=== PATIENT | female | born 1980 | race African-American/Black ===

== ENCOUNTER 2018-04-24 17:42 | Inpatient (IN) | payer OTHER ==
[2018-04-24] MEDS ORDERED: NORMAL SALINE 1000 ML 1,000 ML IV ONE (18:12)
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
[2018-04-24] MEDS ORDERED: ONDANSETRON 4 MG TAB.RAPDIS PO ONE (18:21)
[2018-04-24 19:17] LABS: HEMATOCRIT 36.8 % (36.0-47.0); HEMOGLOBIN 11.8 g/dL (12.0-15.5); MEAN CORPUSCULAR HEMOGLOBIN 31.2 pg (27.0-33.4); MEAN CORPUSCULAR HGB CONC 32.2 g/dL (32.0-36.0); MEAN CORPUSCULAR VOLUME 97 fl (80-97); PLATELET COUNT 353 10^3/uL (150-450); RED CELL DISTRIBUTION WIDTH 26.9 % (11.5-14.0); WHITE BLOOD COUNT 7.9 10^3/uL (4.0-10.5)
--- NOTE | 2018-04-24 19:20 | RADIOLOGY REPORT (SQ) ---
EXAM DESCRIPTION: CHEST SINGLE VIEW COMPLETED DATE/TIME: 04/24/2018 7:06 pm REASON FOR STUDY: sob COMPARISON: None. EXAM PARAMETERS: NUMBER OF VIEWS: One view. TECHNIQUE: Single frontal radiographic view of the chest acquired. RADIATION DOSE: NA LIMITATIONS: None. FINDINGS: LUNGS AND PLEURA: No opacities, masses or pneumothorax. No pleural effusion. MEDIASTINUM AND HILAR STRUCTURES: No masses. Contour normal. HEART AND VASCULAR STRUCTURES: Heart normal in size. Normal vasculature. BONES: No acute findings. HARDWARE: None in the chest. OTHER: No other significant finding. IMPRESSION: NO ACUTE RADIOGRAPHIC FINDING IN THE CHEST. TECHNICAL DOCUMENTATION: JOB ID: [id number] [id number] 2010 [employer]- All Rights Reserved Reading location - IP/workstation name: [email or web address]
[2018-04-24 19:32] LABS: ALANINE AMINOTRANSFERASE 72 U/L (9-52); ALBUMIN 5.4 g/dL (3.5-5.0); ALKALINE PHOSPHATASE 82 U/L (38-126); ASPARTATE AMINO TRANSFERASE 172 U/L (14-36); BILIRUBIN,DIRECT 0.7 mg/dL (0.0-0.4); BLOOD UREA NITROGEN 7 mg/dL (7-20); CALCIUM 10.4 mg/dL (8.4-10.2); GLUCOSE 121 mg/dL (75-110); POTASSIUM 4.8 mmol/L (3.6-5.0); TOTAL PROTEIN 10.8 g/dL (6.3-8.2)
[2018-04-24 19:40] LABS: ABSOLUTE MONOCYTES # (MANUAL) 0.1 10^3/uL (0.1-1.4); ABSOLUTE NEUTROPHILS# (MANUAL) 5.8 10^3/uL (1.7-8.2); BASOPHILS % (MANUAL) 0 % (0-2); CHLORIDE 107 mmol/L (98-107); EOSINOPHILS % (MANUAL) 0 % (0-6); LYMPHOCYTES % (MANUAL) 25 % (13-45); MONOCYTES % (MANUAL) 1 % (3-13); SEGMENTED NEUTROPHILS % (MAN) 74 % (42-78); SODIUM 141.3 mmol/L (137-145); TOTAL CELLS COUNTED 100
[2018-04-24 19:41] LABS: ANISOCYTOSIS 3+; PLATELET COMMENT ADEQUATE; POLYCHROMASIA 1+
[2018-04-24 19:47] LABS: FREE T3 1.66 pg/mL (2.77-5.27); FREE T4 (FREE THYROXINE) 0.44 ng/dL (0.78-2.19)
[2018-04-24 19:57] LABS: CARBON DIOXIDE < 5 mmol/L (22-30)
[2018-04-24 20:01] LABS: THYROID STIMULATING HORMONE 3.1 uIU/mL (0.47-4.68)
[2018-04-24] MEDS ORDERED: METOCLOPRAMIDE HCL INJ/PF 10 MG/2 ML SDV IV ONE (20:28)
[2018-04-24] MEDS ORDERED: RINGERS SOLUTION,LACTATED 1,000 ML IV ONE (20:28)
[2018-04-24] MEDS ORDERED: DIAZEPAM INJ 10 MG/2 ML DISP.SYRIN ONE (20:44)
[2018-04-24] MEDS ORDERED: DIAZEPAM INJ 10 MG/2 ML DISP.SYRIN IV ONE ×2 (20:53→22:46)
--- NOTE | 2018-04-24 21:07 | EKG REPORT ---
SEVERITY:- BORDERLINE ECG - SINUS RHYTHM PROBABLE LEFT ATRIAL ABNORMALITY : Confirmed by: Fiorella Posey MD 24-Apr-2018 21:06:32
[2018-04-24] MEDS ORDERED: HALOPERIDOL LACTATE INJ 5 MG/1 ML VIAL IV ONE (21:29)
--- NOTE | 2018-04-24 21:31 | ER Document Report ---
ED General - General Chief Complaint: Breathing Difficulty Stated Complaint: VOMITING/WEAKNESS Time Seen by Provider: 04/24/18 18:10 Mode of Arrival: Ambulatory Cannot obtain history due to: Uncooperative Notes: Patient is a 37-year-old female with a past medical history of alcoholism, PTSD , anxiety who presents with feelings of shortness of breath, nausea and anxiety. The patient states that her symptoms started this morning, been ongoing since that time. She denies any alcohol consumption today. She states that she took hydroxyzine thinking she was having anxiety attack which did not help. She denies any history of similar symptoms in the past. She notes that she has had nausea with associated vomiting but denies chest pain or abdominal pain. No fever or constitutional symptoms. She has not seen her general doctor regarding today's concerns. She denies any medication ingestion today other than hydroxyzine. She denies any illicit substance ingestion. She denies toxic alcohol ingestion. TRAVEL OUTSIDE OF THE [place] IN LAST 30 DAYS: No - Related Data Allergies/Adverse Reactions: Penicillins Allergy (Verified 04/24/18 17:43) Shellfish * [Shellfish] Allergy (Verified 04/24/18 17:43) Past Medical History - General Information source: Patient - Social History Smoking Status: Current Some Day Smoker Chew tobacco use (# tins/day): No Frequency of alcohol use: ETOH abuse Drug Abuse: None Lives with: Family Family History: Arthritis, CAD, DM, Malignancy Patient has suicidal ideation: No Patient has homicidal ideation: No - Past Medical History Cardiac Medical History: Reports: Hx Hypercholesterolemia - DX IN 2011, Hx Hypertension - no meds Pulmonary Medical History: Reports: Hx Bronchitis - IN 2007 Renal/ Medical History: Denies: Hx Peritoneal Dialysis Psychiatric Medical History: Reports: Hx Anxiety - DX IN 2010, Hx Depression - DX IN 2010, Hx Post Traumatic Stress Disorder - DX IN 2009 Past Surgical History: Reports: Hx Tonsillectomy - REMOVE 2006 - Immunizations Immunizations up to date: Yes Hx Diphtheria, Pertussis, Tetanus Vaccination: Yes Review of Systems - Review of Systems Notes: Constitutional: Negative for fever. HENT: Negative for sore throat. Eyes: Negative for visual changes. Cardiovascular: Negative for chest pain. Respiratory: Positive for shortness of breath. Gastrointestinal: Negative for abdominal pain, positive for nausea and vomiting Genitourinary: Negative for dysuria. Musculoskeletal: Negative for back pain. Skin: Negative for rash. Neurological: Negative for headaches, weakness or numbness. 10 point ROS negative except as marked above and in HPI. Physical Exam - Vital signs Vitals: Temp Pulse Resp BP Pulse Ox 97.5 F 135 H 24 H 138/104 H 97 04/24/18 17:48 04/24/18 17:48 04/24/18 17:48 04/24/18 17:48 04/24/18 17:48 Interpretation: Tachycardic, Tachypneic Notes: PHYSICAL EXAMINATION: GENERAL: Appears unwell but in no overt distress. Hyperventilating. HEAD: Atraumatic, normocephalic. EYES: Pupils equal round and reactive to light, extraocular movements intact, sclera anicteric, conjunctiva are normal. ENT: nares patent, oropharynx clear without exudates. Dry mucous membranes. NECK: Normal range of motion, supple without lymphadenopathy LUNGS: Hyperventilation, breathing 50 times per minute at the time of my initial assessment. Clear breath sounds in all lung chong. No retractions or evidence of overt distress. HEART: Regular tachycardia without murmurs ABDOMEN: Soft, nontender, normoactive bowel sounds. No guarding, no rebound. No masses appreciated. EXTREMITIES: Normal range of motion, no pitting or edema. No cyanosis. NEUROLOGICAL: No focal neurological deficits. Moves all extremities spontaneously and on command. PSYCH: Highly anxious SKIN: Warm, Dry, normal turgor, no rashes or lesions noted. Course - Re-evaluation Re-evalutation: 04/24/18 21:29 Patient presents with what appears to be severe anxiety with associated hyperventilation. She is quite tachycardic although is saturating 100% on room air, chest evidence of a pneumothorax or infiltrate. Her labs show an undetectable bicarb. Venous blood gas and lactate are pending. Patient does admit to severe anxiety, diazepam was administered without any significant effect. This is extremely concerning as this would be quite atypical for a panic attack as would her low bicarbonate. Will obtain a CTA of the chest to ensure that her profound tachypnea is not related to an acute pulmonary embolus which I believe is unlikely. Metabolic origins are also in the differential the patient adamantly denies any toxic alcohol ingestion, she is not uremic, no evidence of DKA. 04/24/18 21:44 Patient's tachypnea and heart rate have gradually improved after receiving haloperidol though she does remain moderately tachypneic. We are working to obtain venous blood gas and the patient will go for CTA of the chest. Given her persistent tachypnea and overall ongoing clinical picture the patient is in guarded condition and I will continue to reassess at regular intervals 04/24/18 22:24 Patient's work of breathing and tachycardia gradually improving although she does continue to be somewhat tachypneic. Heart rate currently 113. Blood gas and CTA pending. 04/24/18 22:30 CTA of the chest was unable to be obtained as the line blew. The patient's lactate is normal at 1. Venous blood gas does significant metabolic abnormalities pH of 7.02 with a PCO2 of 19. This is consistent with hyperventilatory respiratory alkalosis although it appears that the patient is having a metabolic acidosis of an unclear source. The patient is not DKA, no evidence of a lactic acidosis, she denies toxic alcohol ingestion, EtOH level negative, salicylate level pending. 04/24/18 22:55 The patient continues to hyperventilate, I have again confronted her directly about any possibility of aspirin, Tylenol or toxic alcohol ingestion which she again denies forcefully stating the only thing she took today at home was hydroxyzine. I do not believe a CT is indicated at this point as the overall picture on blood gas is of a metabolic acidosis with a tachypnea as a form of respiratory compensation. Serum osmole's are pending. Patient does not require intubation and I think this would dramatically worsen her picture at this time. A bicarbonate bolus followed by infusion have been started. 04/25/18 00:03 Patient's vitals have continued to improve, current heart rate down to 104, respiratory rate into the upper 20s. Awaiting serum Patel's. Bicarb infusion ongoing. Awaiting repeat Accu-Chek. Thiamine and folate have been initiated. Awaiting urinalysis. 04/25/18 00:42 I discussed this case with Dr. Rodriguez who has accepted the patient for admission. At this point the most probable diagnosis appears to be alcoholic ketosis - Vital Signs Vital signs: Temp Pulse Resp BP Pulse Ox 97.5 F 135 H 31 H 138/104 H 100 04/24/18 17:48 04/24/18 17:48 04/25/18 02:00 04/24/18 17:48 04/25/18 01:00 - Laboratory Result Diagrams: 04/24/18 19:00 04/24/18 19:00 Laboratory results interpreted by me: 04/24/18 04/24/18 04/24/18 19:00 19:00 19:00 Hgb 11.8 L RDW 26.9 H Monocytes % (Manual) 1 L VBG pH VBG pCO2 VBG HCO3 Carbon Dioxide < 5 L* Creatinine 1.64 H Est GFR ( Amer) 43 L Est GFR (Non-Af Amer) 36 L Glucose 121 H Serum Osmolality Calcium 10.4 H Phosphorus Direct Bilirubin 0.7 H AST 172 H ALT 72 H Total Protein 10.8 H Albumin 5.4 H Free T4 0.44 L Free T3 pg/mL 1.66 L Salicylates Acetaminophen 04/24/18 04/24/18 04/24/18 19:00 19:00 19:00 Hgb RDW Monocytes % (Manual) VBG pH VBG pCO2 VBG HCO3 Carbon Dioxide Creatinine Est GFR ( Amer) Est GFR (Non-Af Amer) Glucose Serum Osmolality 319 H Calcium Phosphorus Direct Bilirubin AST ALT Total Protein Albumin Free T4 Free T3 pg/mL Salicylates < 1.0 L Acetaminophen < 10 L 04/24/18 04/24/18 19:00 22:09 Hgb RDW Monocytes % (Manual) VBG pH 7.02 L* VBG pCO2 19.0 L* VBG HCO3 4.8 L Carbon Dioxide Creatinine Est GFR ( Amer) Est GFR (Non-Af Amer) Glucose Serum Osmolality Calcium Phosphorus 5.2 H Direct Bilirubin AST ALT Total Protein Albumin Free T4 Free T3 pg/mL Salicylates Acetaminophen - Diagnostic Test Radiology reviewed: Image reviewed, Reports reviewed Radiology results interpreted by me: 04/25/18 00:42 Chest x-ray: No acute infiltrate or pneumothorax Critical Care Note - Critical Care Note Total time excluding time spent on procedures (mins): 78 Comments: Critical care time spent obtaining history from patient or surrogate, discussions with consultants, development of treatment plan with patient or surrogate, evaluation of patient's response to treatment, examination of patient , ordering and performing treatments and interventions, ordering and review of laboratory studies, re-evaluation of patient's condition, ordering and review of radiographic studies and review of old charts Discharge - Discharge Clinical Impression: Alcoholic ketosis, Metabolic acidosis, Respiratory alkalosis Condition: Fair Disposition: ADMITTED INPATIENT Admitting Provider: Hospitalist Unit Admitted: Telemetry
[2018-04-24 22:34] LABS: VENOUS BLOOD BASE EXCESS -24.4 mmol/L; VENOUS BLOOD HCO3 4.8 mmol/L (20-32)
[2018-04-24 22:38] LABS: VENOUS BLOOD PH 7.02 (7.30-7.42)
[2018-04-24] MEDS ORDERED: SODIUM BICARBONATE 8.4% INJ 50 MEQ/50 ML DISP.SYRIN IV ONE (22:48)
[2018-04-24] MEDS ORDERED: DEXTROSE 5%-WATER 1000 ML 1,000 ML with SODIUM BICARBONATE 150 MEQ IV PRN ×2 (22:55)
[2018-04-24 23:13] LABS: SALICYLATE < 1.0 mg/dL (2.0-20.0)
[2018-04-24] MEDS ORDERED: THIAMINE HCL 100 MG, FOLIC ACID 1 MG in NORMAL SALINE 250 ML IV ONE (23:27)
[2018-04-24] MEDS ORDERED: SODIUM BICARBONATE 8.4% INJ 50 MEQ/50 ML DISP.SYRIN ONE (23:38)
[2018-04-24 23:57] LABS: ACETAMINOPHEN < 10 ug/mL (10-30)
[2018-04-25] MEDS ORDERED: DEXTROSE 50%-WATER 25 GM/50 ML DISP.SYRIN IV ONE (00:39)
[2018-04-25] MEDS ORDERED: IPRATROPIUM/ALBUTEROL 0.5-2.5 MG/3 ML AMPUL NEB PRN (00:49)
[2018-04-25] MEDS ORDERED: DEXTROSE 5%-1/2 NORMAL SALINE 1,000 ML IV PRN (01:00)
[2018-04-25 01:07] LABS: INTERNATIONAL RATION (INR) 1.03
[2018-04-25 01:14] LABS: LIPASE 287.4 U/L (23-300); PHOSPHORUS 5.2 mg/dL (2.5-4.5)
[2018-04-25] MEDS ORDERED: THIAMINE HCL INJ 200 MG/2 ML VIAL ONE (01:15)
[2018-04-25] MEDS ORDERED: FOLIC ACID INJ 5 MG/1 ML 10 ML VIAL ONE (01:39)
[2018-04-25] MEDS: LORAZEPAM INJ 2 MG/1 ML VIAL IV PRN ×2 (03:38→21:27)
--- NOTE | 2018-04-25 04:46 | OPERATIVE REPORT E ---
Operative Report NAME: MAURA PEMBERTON : 1980 AGE: 37Y DATE OF SURGERY: 04/25/18 ROOM: 315 PREOPERATIVE DIAGNOSIS: POOR VEINS FOR IV ACCESS AND PATIENT NEEDED ACCESS BECAUSE OF HER ALCOHOLIC INTOXICATION. POSTOPERATIVE DIAGNOSIS: POOR VEINS FOR IV ACCESS AND PATIENT NEEDED ACCESS BECAUSE OF HER ALCOHOLIC INTOXICATION. OPERATION: Placement of left subclavian vein triple-lumen catheter. SURGEON: YAMILEX WAITE M.D. ANESTHESIA: Local. INDICATION: This is a 37-year-old female admitted for alcoholic intoxication and has poor veins for IV access. DESCRIPTION OF PROCEDURE: The patient was placed in Trendelenburg position and the left clavicular and neck areas were then prepped and draped in the usual sterile fashion. Local anesthesia infiltrated along the left infraclavicular area and the left subclavian vein subsequently punctured and guidewire passed through the needle towards the area of the superior vena cava. The needle was removed, the puncture site enlarged, and a triple-lumen catheter inserted through the guidewire to a distance of about 16 cm. The catheter was then anchored to the skin with 3-0 silk and all the 3 ports aspirated easily and instilled saline easily. Biopatch placed over the insertion site and a transparent sterile dressing placed over the Biopatch and catheter. A chest x-ray will be taken for placement. DICTATING PHYSICIAN: YAMILEX WAITE M.D. [id number] PHY#: [id number] ID: [id number] JOB#: [id number] ACCT: [id number] cc:YAMILEX WAITE M.D. >
[2018-04-25 04:56] LABS: ARTERIAL BLOOD BASE EXCESS -19.4 mmol/L; ARTERIAL BLOOD H2CO3 0.38 mmol/L (1.05-1.35); ARTERIAL BLOOD HCO3 5.4 mmol/L (20-24); ARTERIAL BLOOD O2 SATURATION 98.4 % (94-98); ARTERIAL BLOOD PH 7.25 (7.35-7.45); ARTERIAL BLOOD PO2 136.4 mmHg (80-100); ARTERIAL BLOOD TOTAL CO2 5.8 mmol/L (21-25)
[2018-04-25 05:03] LABS: ARTERIAL BLOOD PCO2 12.6 mmHg (35-45)
[2018-04-25 05:06] LABS: ARTERIAL BLOOD FIO2 2 L
[2018-04-25 05:13] LABS: ABSOLUTE LYMPHOCYTES (AUTO) 0.5 10^3/uL (0.5-4.7); ABSOLUTE MONOCYTES (AUTO) 0.2 10^3/uL (0.1-1.4); ABSOLUTE NEUT (AUTO) 9.3 10^3/uL (1.7-8.2); BASOPHILS % (AUTO) 0.2 % (0-2); HEMOGLOBIN 10.5 g/dL (12.0-15.5); LYMPHOCYTES % (AUTO) 5.1 % (13-45); MEAN CORPUSCULAR HEMOGLOBIN 30.9 pg (27.0-33.4); MEAN CORPUSCULAR VOLUME 97 fl (80-97); MONOCYTES % (AUTO) 2.2 % (3-13); PLATELET COUNT 238 10^3/uL (150-450); RED BLOOD COUNT 3.42 10^6/uL (3.72-5.28); RED CELL DISTRIBUTION WIDTH 26.4 % (11.5-14.0); SEGMENTED NEUTROPHILS % (AUTO) 92.5 % (42-78); TOTAL CELLS COUNTED % (AUTO) 100 %
[2018-04-25 05:27] LABS: ANISOCYTOSIS 3+; PLATELET COMMENT ADEQUATE; POLYCHROMASIA 1+
[2018-04-25 05:29] LABS: ALANINE AMINOTRANSFERASE 68 U/L (9-52); ALKALINE PHOSPHATASE 72 U/L (38-126); ASPARTATE AMINO TRANSFERASE 114 U/L (14-36); BILIRUBIN,DIRECT 0.6 mg/dL (0.0-0.4); BILIRUBIN,TOTAL 0.9 mg/dL (0.2-1.3); BLOOD UREA NITROGEN 5 mg/dL (7-20); CALCIUM 9.5 mg/dL (8.4-10.2); GLUCOSE 230 mg/dL (75-110); POTASSIUM 5.2 mmol/L (3.6-5.0); TOTAL PROTEIN 9.2 g/dL (6.3-8.2)
[2018-04-25 05:35] LABS: CHLORIDE 109 mmol/L (98-107); SODIUM 141.4 mmol/L (137-145)
[2018-04-25 05:41] LABS: ANION GAP 27 (5-19)
[2018-04-25 05:43] LABS: CARBON DIOXIDE 5 mmol/L (22-30)
[2018-04-25] MEDS: HEPARIN SOD (PORCINE) 5,000 UNIT/ML 1 ML SYRINGE SUBCUT SCH ×3 (05:44→21:27)
--- NOTE | 2018-04-25 05:50 | RADIOLOGY REPORT (SQ) ---
Chest single view on 04/25/2018 at 4:41 AM CLINICAL INDICATION: Central line placement COMPARISON: 04/24/2018 FINDINGS: New left subclavian catheter tip is in the SVC. There is no pneumothorax. The lungs are clear. Cardiac, hilar and mediastinal contours are within normal limits. Pulmonary vascularity is within normal limits. IMPRESSION: No acute disease.
[2018-04-25] MEDS ORDERED: GLUCAGON,HUMAN RECOMB 1 MG INJ IM PRN (05:51)
[2018-04-25] MEDS ORDERED: INSULIN REG, HUMAN 100 UNIT/ML 3 ML VIAL (PYX) IV ONE (05:51)
[2018-04-25] MEDS ORDERED: DEXTROSE 40% GEL 15 GM TUBE PO PRN ×2 (05:51)
[2018-04-25] MEDS ORDERED: INSULIN LISPRO 100 UNIT/ML 3 ML VIAL SUBCUT PRN (05:51)
[2018-04-25] MEDS ORDERED: DEXTROSE 50%-WATER 25 GM/50 ML DISP.SYRIN IV PRN ×2 (05:51)
[2018-04-25] MEDS ORDERED: PHARMACY COMMUNICATION ORDER MC NR (10:30)
[2018-04-25] MEDS ORDERED: PROPOFOL 1,000 MG/100 ML INFUS..BTL IV ONE (10:47)
[2018-04-25 11:15] LABS: ARTERIAL BLOOD H2CO3 0.63 mmol/L (1.05-1.35); ARTERIAL BLOOD HCO3 10.1 mmol/L (20-24); ARTERIAL BLOOD O2 SATURATION 97.7 % (94-98); ARTERIAL BLOOD PO2 109.5 mmHg (80-100); ARTERIAL BLOOD TOTAL CO2 10.7 mmol/L (21-25)
[2018-04-25 11:16] LABS: ARTERIAL BLOOD FIO2 21%
[2018-04-25 11:18] LABS: ARTERIAL BLOOD PCO2 20.9 mmHg (35-45)
[2018-04-25 11:23] LABS: HEMATOCRIT 30.9 % (36.0-47.0); HEMOGLOBIN 10.2 g/dL (12.0-15.5); MEAN CORPUSCULAR HEMOGLOBIN 30.8 pg (27.0-33.4); MEAN CORPUSCULAR VOLUME 94 fl (80-97); PLATELET COUNT 209 10^3/uL (150-450); RED CELL DISTRIBUTION WIDTH 26.7 % (11.5-14.0); WHITE BLOOD COUNT 6.6 10^3/uL (4.0-10.5)
[2018-04-25 11:31] LABS: ANION GAP 19 (5-19); BLOOD UREA NITROGEN 4 mg/dL (7-20); CALCIUM 8.8 mg/dL (8.4-10.2); CARBON DIOXIDE 12 mmol/L (22-30); CHLORIDE 108 mmol/L (98-107); GLUCOSE 275 mg/dL (75-110); POTASSIUM 4.3 mmol/L (3.6-5.0); SODIUM 138.6 mmol/L (137-145)
[2018-04-25 11:41] LABS: URINE AMPHETAMINES SCREEN NEGATIVE; URINE BARBITURATES SCREEN NEGATIVE; URINE COCAINE SCREEN NEGATIVE; URINE MARIJUANA (THC) SCREEN NEGATIVE; URINE METHADONE SCREEN NEGATIVE; URINE PHENCYCLIDINE SCREEN NEGATIVE
[2018-04-25 11:49] LABS: URINE BENZODIAZEPINES SCREEN UNCONFIRMED POSITIVE
[2018-04-25] MEDS: RINGERS SOLUTION,LACTATED 1,000 ML IV PRN ×2 (12:20→21:26)
--- NOTE | 2018-04-25 12:39 | RADIOLOGY REPORT (SQ) ---
EXAM DESCRIPTION: KUB/ABDOMEN (SINGLE VIEW) COMPLETED DATE/TIME: 04/25/2018 11:38 am REASON FOR STUDY: Check Placement of NG Tube COMPARISON: None. NUMBER OF VIEWS: One view. TECHNIQUE: Supine radiographic image of the abdomen acquired. LIMITATIONS: None. FINDINGS: BOWEL GAS PATTERN: Normal bowel gas pattern. No dilated loops. CALCIFICATIONS: No suspicious calcifications. SOFT TISSUES: No gross mass or suggestion of organomegaly. HARDWARE: None. BONES: No bone lesions or fracture. OTHER: Nasogastric tube in the stomach. IMPRESSION: Nasogastric tube in the stomach. Reading location - IP/workstation name: [email or web address]
[2018-04-25] MEDS ORDERED: THIAMINE HCL 100 MG, FOLIC ACID 1 MG in NORMAL SALINE 250 ML IV SCH (14:00)
[2018-04-25] MEDS ORDERED: NORMAL SALINE 1000 ML 1,000 ML with POTASSIUM CHLORIDE 20 MEQ, MAGNESIUM SULFATE 8 MEQ,... IV SCH ×5 (18:00)
[2018-04-25 20:42] LABS: ANION GAP 14 (5-19); BLOOD UREA NITROGEN 4 mg/dL (7-20); CALCIUM 8.7 mg/dL (8.4-10.2); CARBON DIOXIDE 16 mmol/L (22-30); CHLORIDE 110 mmol/L (98-107); GLUCOSE 142 mg/dL (75-110); POTASSIUM 3.8 mmol/L (3.6-5.0); SODIUM 140.4 mmol/L (137-145)
[2018-04-26] MEDS: LORAZEPAM INJ 2 MG/1 ML VIAL IV PRN ×2 (03:33→07:44)
[2018-04-26] MEDS: RINGERS SOLUTION,LACTATED 1,000 ML IV PRN (03:33)
[2018-04-26] MEDS: HEPARIN SOD (PORCINE) 5,000 UNIT/ML 1 ML SYRINGE SUBCUT SCH ×3 (05:38→21:20)
[2018-04-26 05:39] LABS: ABSOLUTE LYMPHOCYTES (AUTO) 0.9 10^3/uL (0.5-4.7); ABSOLUTE MONOCYTES (AUTO) 0.2 10^3/uL (0.1-1.4); BASOPHILS % (AUTO) 0.5 % (0-2); EOSINOPHILS % (AUTO) 0.6 % (0-6); HEMATOCRIT 32.1 % (36.0-47.0); HEMOGLOBIN 10.8 g/dL (12.0-15.5); LYMPHOCYTES % (AUTO) 27.6 % (13-45); MEAN CORPUSCULAR HGB CONC 33.6 g/dL (32.0-36.0); MEAN CORPUSCULAR VOLUME 92 fl (80-97); MONOCYTES % (AUTO) 5.6 % (3-13); PLATELET COUNT 153 10^3/uL (150-450); RED BLOOD COUNT 3.48 10^6/uL (3.72-5.28); RED CELL DISTRIBUTION WIDTH 27.8 % (11.5-14.0); SEGMENTED NEUTROPHILS % (AUTO) 65.7 % (42-78); TOTAL CELLS COUNTED % (AUTO) 100 %; WHITE BLOOD COUNT 3.1 10^3/uL (4.0-10.5)
[2018-04-26 05:46] LABS: ALANINE AMINOTRANSFERASE 45 U/L (9-52); ALBUMIN 3.6 g/dL (3.5-5.0); ALKALINE PHOSPHATASE 57 U/L (38-126); ANION GAP 13 (5-19); ASPARTATE AMINO TRANSFERASE 57 U/L (14-36); BILIRUBIN,DIRECT 0.4 mg/dL (0.0-0.4); BILIRUBIN,TOTAL 0.9 mg/dL (0.2-1.3); BLOOD UREA NITROGEN 3 mg/dL (7-20); CALCIUM 8.6 mg/dL (8.4-10.2); CARBON DIOXIDE 19 mmol/L (22-30); CHLORIDE 110 mmol/L (98-107); GLUCOSE 113 mg/dL (75-110); POTASSIUM 3.2 mmol/L (3.6-5.0); SODIUM 141.9 mmol/L (137-145); TOTAL PROTEIN 6.9 g/dL (6.3-8.2)
[2018-04-26 06:04] LABS: ANISOCYTOSIS 3+; OVALOCYTES SLIGHT; PLATELET COMMENT ADEQUATE; POIKILOCYTOSIS 1+; TARGET CELLS 1+; TEAR DROP CELLS SLIGHT
[2018-04-26 06:05] LABS: PLATELET LARGE PRESENT
[2018-04-26] MEDS: POTASSIUM CHLORIDE 20 MEQ/50 ML RTU IV SCH ×2 (09:06→11:11)
--- NOTE | 2018-04-26 09:45 | PDOC H&P ---
History of Present Illness Admission Date/PCP: 04/25/18 01:04 Patient complains of: Anxiety History of Present Illness: TAMI PEMBERTNO is a 37 year old female who presented to the emergency room during the evening of 04/24/2018 complaining of dyspnea, nausea and severe anxiety with a panic attack. She has a history of excessive and heavy alcohol use on a regular basis and had not had any alcohol for 12 to 24 hours prior to onset of her symptoms. She describes the dyspnea as severe and that she was having a great deal of difficulty initiating the inhalation portion of her respiratory cycle. Her nausea was moderate in intensity and was not accompanied by vomiting, chest pain or cough. Her anxiety was severe with a panic attack and was not responsive to hydroxyzine when taken. In the emergency room she was found to be significantly acidotic and tachycardic with a high level of anxiety which did not respond to treatment with diazepam. She was subsequently admitted to the intensive care unit and treated with IV Ativan and IV fluids. At the time of this evaluation Tami is somnolent though arousable but is unable to provide any further information to supplement her medical history. Past Medical History Cardiac Medical History: Reports: Hyperlipidema - DX IN 2011, Hypertension - no meds Pulmonary Medical History: Reports: Bronchitis - IN 2007 EENT Medical History: Reports: None Neurological Medical History: Reports: None Endocrine Medical History: Reports: None Renal/ Medical History: Reports: None Malignancy Medical History: Reports: None GI Medical History: Reports: None Musculoskeltal Medical History: Reports: None Skin Medical History: Reports: None Psychiatric Medical History: Reports: Depression - DX IN 2010, Post Traumatic Stress Disorder - DX IN 2009, Other - History of chronic daily alcohol abuse/ dependency/alcoholism per family Traumatic Medical History: Reports: None Hematology: Reports: Anemia Infectious Medical History: Reports: None Past Surgical History Past Surgical History: Reports: Tonsillectomy - REMOVE 2006 Social History Lives with: Family Smoking Status: Current Some Day Smoker Frequency of Alcohol Use: Heavy Hx Recreational Drug Use: No Hx Prescription Drug Abuse: No - Advance Directive Resuscitation Status: Full Code Family History Family History: Arthritis, CAD, DM, Malignancy Parental Family History Reviewed: Yes Children Family History Reviewed: No Sibling(s) Family History Reviewed.: Yes Medication/Allergy Allergies/Adverse Reactions: Penicillins Allergy (Verified 04/24/18 17:43) Shellfish * [Shellfish] Allergy (Verified 04/24/18 17:43) Review of Systems ROS unobtainable: Due to mental status - Patient was significantly sedated at the time of evaluation though she was arousable he could only provide limited information due to her sedation and lack of focus on the process of providing her medical history. Physical Exam Vital Signs: Temp Pulse Resp BP Pulse Ox 100.2 F 128 H 23 H 125/99 H 100 04/26/18 08:50 04/26/18 08:00 04/26/18 08:50 04/26/18 08:50 04/26/18 08:00 Intake & Output 04/25/18 04/26/18 04/27/18 06:59 06:59 06:59 Intake Total 1000 4024.4 Output Total 835 30 Balance 1000 3189.4 -30 Weight 55.9 kg 55.2 kg General appearance: PRESENT: no acute distress, cooperative, other - Somnolent but arousable. Head exam: PRESENT: atraumatic, normocephalic Eye exam: PRESENT: conjunctiva pink, EOMI. ABSENT: conjunctival injection, scleral icterus Ear exam: PRESENT: normal external ear exam. ABSENT: bleeding, drainage Mouth exam: PRESENT: moist, tongue midline Neck exam: ABSENT: thyromegaly, tracheal deviation Respiratory exam: PRESENT: clear to auscultation kranthi, symmetrical, unlabored Cardiovascular exam: PRESENT: RRR. ABSENT: clicks, diastolic murmur, gallop, rubs, systolic murmur Pulses: PRESENT: normal carotid pulses, normal radial pulses Vascular exam: PRESENT: normal capillary refill. ABSENT: pallor GI/Abdominal exam: PRESENT: normal bowel sounds, soft. ABSENT: distended, tenderness Rectal exam: PRESENT: deferred Extremities exam: ABSENT: joint swelling, pedal edema Musculoskeletal exam: PRESENT: normal inspection. ABSENT: deformity, dislocation Neurological exam: PRESENT: altered - Somnolent secondary to chemical sedation. She is responsive to verbal stimuli but has a very short attention span and returns promptly to sleep., oriented to person, oriented to place, CN II-XII grossly intact. ABSENT: motor sensory deficit - To gross exam Psychiatric exam: PRESENT: other - Unable to assess due to chemical sedation Skin exam: PRESENT: intact. ABSENT: jaundice, rash, urticaria Results Laboratory Results: 04/26/18 05:10 04/26/18 05:10 04/25/18 04/25/18 04/25/18 10:45 10:45 10:45 WBC 6.6 RBC 3.30 L Hgb 10.2 L Hct 30.9 L MCV 94 MCH 30.8 MCHC 33.0 RDW 26.7 H Plt Count 209 Seg Neutrophils % Lymphocytes % Monocytes % Eosinophils % Basophils % Absolute Neutrophils Absolute Lymphocytes Absolute Monocytes Absolute Eosinophils Absolute Basophils Carbonic Acid HCO3/H2CO3 Ratio ABG pH ABG pCO2 ABG pO2 ABG HCO3 ABG O2 Saturation ABG Base Excess FiO2 Sodium 138.6 Potassium 4.3 Chloride 108 H Carbon Dioxide 12 L Anion Gap 19 BUN 4 L Creatinine 0.67 Est GFR ( Amer) > 60 Est GFR (Non-Af Amer) > 60 Glucose 275 H Serum Osmolality 301 Lactic Acid Calcium 8.8 Total Bilirubin AST ALT Alkaline Phosphatase Total Protein Albumin Urine Color Urine Appearance Urine pH Ur Specific Vance Urine Protein Urine Glucose (UA) Urine Ketones Urine Blood Urine Nitrite Ur Leukocyte Esterase Urine WBC (Auto) Urine RBC (Auto) 04/25/18 04/25/18 04/25/18 10:55 11:12 17:43 WBC RBC Hgb Hct MCV MCH MCHC RDW Plt Count Seg Neutrophils % Lymphocytes % Monocytes % Eosinophils % Basophils % Absolute Neutrophils Absolute Lymphocytes Absolute Monocytes Absolute Eosinophils Absolute Basophils Carbonic Acid 0.63 L HCO3/H2CO3 Ratio 16:1 ABG pH 7.30 L ABG pCO2 20.9 L* ABG pO2 109.5 H ABG HCO3 10.1 L ABG O2 Saturation 97.7 ABG Base Excess -14.0 FiO2 21% Sodium Potassium Chloride Carbon Dioxide Anion Gap BUN Creatinine Est GFR ( Amer) Est GFR (Non-Af Amer) Glucose Serum Osmolality Lactic Acid 0.9 Calcium Total Bilirubin AST ALT Alkaline Phosphatase Total Protein Albumin Urine Color Cancelled Urine Appearance Cancelled Urine pH Cancelled Ur Specific Vance Cancelled Urine Protein Cancelled Urine Glucose (UA) Cancelled Urine Ketones Cancelled Urine Blood Cancelled Urine Nitrite Cancelled Ur Leukocyte Esterase Cancelled Urine WBC (Auto) Cancelled Urine RBC (Auto) Cancelled 04/25/18 04/25/18 04/26/18 19:05 20:10 05:10 WBC 3.1 L RBC 3.48 L Hgb 10.8 L Hct 32.1 L MCV 92 MCH 31.0 MCHC 33.6 RDW 27.8 H Plt Count 153 Seg Neutrophils % 65.7 Lymphocytes % 27.6 Monocytes % 5.6 Eosinophils % 0.6 Basophils % 0.5 Absolute Neutrophils 2.0 Absolute Lymphocytes 0.9 Absolute Monocytes 0.2 Absolute Eosinophils 0.0 Absolute Basophils 0.0 Carbonic Acid HCO3/H2CO3 Ratio ABG pH ABG pCO2 ABG pO2 ABG HCO3 ABG O2 Saturation ABG Base Excess FiO2 Sodium Cancelled 140.4 Potassium Cancelled 3.8 Chloride Cancelled 110 H Carbon Dioxide Cancelled 16 L Anion Gap Cancelled 14 BUN Cancelled 4 L Creatinine Cancelled 0.54 Est GFR ( Amer) Cancelled > 60 Est GFR (Non-Af Amer) Cancelled > 60 Glucose Cancelled 142 H Serum Osmolality Lactic Acid Calcium Cancelled 8.7 Total Bilirubin AST ALT Alkaline Phosphatase Total Protein Albumin Urine Color Urine Appearance Urine pH Ur Specific Vance Urine Protein Urine Glucose (UA) Urine Ketones Urine Blood Urine Nitrite Ur Leukocyte Esterase Urine WBC (Auto) Urine RBC (Auto) 04/26/18 05:10 WBC RBC Hgb Hct MCV MCH MCHC RDW Plt Count Seg Neutrophils % Lymphocytes % Monocytes % Eosinophils % Basophils % Absolute Neutrophils Absolute Lymphocytes Absolute Monocytes Absolute Eosinophils Absolute Basophils Carbonic Acid HCO3/H2CO3 Ratio ABG pH ABG pCO2 ABG pO2 ABG HCO3 ABG O2 Saturation ABG Base Excess FiO2 Sodium 141.9 Potassium 3.2 L Chloride 110 H Carbon Dioxide 19 L Anion Gap 13 BUN 3 L Creatinine 0.52 Est GFR ( Amer) > 60 Est GFR (Non-Af Amer) > 60 Glucose 113 H Serum Osmolality Lactic Acid Calcium 8.6 Total Bilirubin 0.9 AST 57 H ALT 45 Alkaline Phosphatase 57 Total Protein 6.9 Albumin 3.6 Urine Color Urine Appearance Urine pH Ur Specific Vance Urine Protein Urine Glucose (UA) Urine Ketones Urine Blood Urine Nitrite Ur Leukocyte Esterase Urine WBC (Auto) Urine RBC (Auto) Impressions: Chest X-Ray 04/25/18 00:00 IMPRESSION: No acute disease. KUB X-Ray 04/25/18 10:20 IMPRESSION: Nasogastric tube in the stomach. Assessment & Plan - Diagnosis (1) Alcohol withdrawal Qualifiers: Complication of substance-induced condition: with unspecified complication Qualified Code(s): F10.239 - Alcohol dependence with withdrawal, unspecified Is this a current diagnosis for this admission?: Yes Plan: Continue IV fluid support at a higher flow rate to support her intravascular volume. CIWA withdrawal regiment utilizing Ativan. Add beta-blockade to help control the tachycardia. Monitor vital signs and intervene as needed. (2) Metabolic acidosis Is this a current diagnosis for this admission?: Yes Plan: Metabolic acidosis is most likely induced by her alcohol consumption and the abrupt stoppage has brought her for treatment and therefore recognition of this phenomenon. The acidosis will be corrected with IV fluid and replacement of electrolytes as appropriate. Monitor daily lab work. (3) Hypokalemia Is this a current diagnosis for this admission?: Yes Plan: Potassium replacement per protocol for hypokalemia. Follow daily lab work. (4) Hypomagnesemia Is this a current diagnosis for this admission?: Yes Plan: Magnesium supplementation to replete diminished stores per protocol. Follow daily laboratory values. - Time Time Spent: 50 to 70 Minutes Medications reviewed and adjusted accordingly: Yes Anticipated discharge: Home Within: within 72 hours
[2018-04-26] MEDS: POTASSI CL 20 MEQ/NS 1L 1,000 ML IV PRN ×3 (11:11→21:20)
[2018-04-26] MEDS ORDERED: POTASSI CL 20 MEQ/NS 1L 1000 ML IV PRN (11:32)
[2018-04-26] MEDS ORDERED: ACETAMINOPHEN 325 MG TABLET PO PRN (11:35)
[2018-04-26] MEDS ORDERED: ACETAMINOPHEN 325 MG TABLET NG PRN (12:00)
[2018-04-26] MEDS ORDERED: LORAZEPAM 1 MG TABLET (TAPER DOSING) PO SCH (12:00)
[2018-04-26] MEDS: LORAZEPAM INJ 2 MG/1 ML VIAL (TAPER DOSING) IV SCH ×3 (12:02→23:41)
[2018-04-26] MEDS: PROPRANOLOL HCL INJ/PF 1 MG/1 ML SDV IV SCH ×2 (12:03→18:22)
[2018-04-26] MEDS: LORAZEPAM INJ 2 MG/ML VIAL (4 MG PRN DOSE) IV ×2 (14:28→21:24)
[2018-04-26] MEDS: NORMAL SALINE 1000 ML 1,000 ML with MAGNESIUM SULFATE 8 MEQ, THIAMINE HCL 100 MG, MVI, ... IV SCH ×4 (18:08)
[2018-04-26 18:16] LABS: HEMATOCRIT 28.4 % (36.0-47.0); HEMOGLOBIN 9.2 g/dL (12.0-15.5); MEAN CORPUSCULAR HEMOGLOBIN 30.3 pg (27.0-33.4); MEAN CORPUSCULAR HGB CONC 32.6 g/dL (32.0-36.0); MEAN CORPUSCULAR VOLUME 93 fl (80-97); PLATELET COUNT 138 10^3/uL (150-450); RED BLOOD COUNT 3.05 10^6/uL (3.72-5.28); RED CELL DISTRIBUTION WIDTH 27.5 % (11.5-14.0); WHITE BLOOD COUNT 3.3 10^3/uL (4.0-10.5)
[2018-04-26 18:33] LABS: ALANINE AMINOTRANSFERASE 39 U/L (9-52); ALBUMIN 2.9 g/dL (3.5-5.0); ALKALINE PHOSPHATASE 54 U/L (38-126); ANION GAP 11 (5-19); ASPARTATE AMINO TRANSFERASE 58 U/L (14-36); BILIRUBIN,DIRECT 0.4 mg/dL (0.0-0.4); BILIRUBIN,TOTAL 0.8 mg/dL (0.2-1.3); BLOOD UREA NITROGEN 4 mg/dL (7-20); CALCIUM 7.8 mg/dL (8.4-10.2); CARBON DIOXIDE 16 mmol/L (22-30); CHLORIDE 116 mmol/L (98-107); GLUCOSE 91 mg/dL (75-110); POTASSIUM 3.7 mmol/L (3.6-5.0); SODIUM 142.5 mmol/L (137-145); TOTAL PROTEIN 5.9 g/dL (6.3-8.2)
[2018-04-26 18:34] LABS: ABSOLUTE MONOCYTES # (MANUAL) 0.1 10^3/uL (0.1-1.4); ABSOLUTE NEUTROPHILS# (MANUAL) 2.2 10^3/uL (1.7-8.2); BAND NEUTROPHILS % (MANUAL) 4 % (3-5); BASOPHILS % (MANUAL) 0 % (0-2); EOSINOPHILS % (MANUAL) 0 % (0-6); LYMPHOCYTES % (MANUAL) 29 % (13-45); METAMYELOCYTES % (MANUAL) 1 % (0); MONOCYTES % (MANUAL) 4 % (3-13); NUCLEATED RED BLOOD CELLS 4 /100 WBC (0); SEGMENTED NEUTROPHILS % (MAN) 62 % (42-78); TOTAL CELLS COUNTED 100
[2018-04-26 18:35] LABS: ANISOCYTOSIS 3+; OVALOCYTES SLIGHT; POIKILOCYTOSIS SLIGHT; TARGET CELLS SLIGHT; TOXIC VACUOLATION PRESENT
[2018-04-26 18:36] LABS: PLATELET COMMENT ADEQUATE; PLATELET LARGE PRESENT
[2018-04-26] MEDS: PROPRANOLOL HCL 10 MG TABLET PO SCH ×2 (20:27→23:41)
[2018-04-27] MEDS: POTASSI CL 20 MEQ/NS 1L 1,000 ML IV PRN ×2 (01:17→05:07)
[2018-04-27] MEDS: LORAZEPAM INJ 2 MG/ML VIAL (4 MG PRN DOSE) IV ×2 (02:05→19:50)
[2018-04-27 04:21] LABS: ABSOLUTE LYMPHOCYTES (AUTO) 1.1 10^3/uL (0.5-4.7); ABSOLUTE MONOCYTES (AUTO) 0.4 10^3/uL (0.1-1.4); ABSOLUTE NEUT (AUTO) 2.5 10^3/uL (1.7-8.2); BASOPHILS % (AUTO) 0.7 % (0-2); EOSINOPHILS % (AUTO) 0.6 % (0-6); HEMATOCRIT 24.3 % (36.0-47.0); HEMOGLOBIN 8.2 g/dL (12.0-15.5); MEAN CORPUSCULAR HEMOGLOBIN 31.3 pg (27.0-33.4); MEAN CORPUSCULAR HGB CONC 33.7 g/dL (32.0-36.0); MEAN CORPUSCULAR VOLUME 93 fl (80-97); PLATELET COUNT 116 10^3/uL (150-450); RED BLOOD COUNT 2.62 10^6/uL (3.72-5.28); RED CELL DISTRIBUTION WIDTH 27.7 % (11.5-14.0); SEGMENTED NEUTROPHILS % (AUTO) 61.7 % (42-78); TOTAL CELLS COUNTED % (AUTO) 100 %; WHITE BLOOD COUNT 4.1 10^3/uL (4.0-10.5)
[2018-04-27 04:38] LABS: CREATININE URINE 77.1 mg/dL (Not Estab.)
[2018-04-27 04:43] LABS: ALANINE AMINOTRANSFERASE 33 U/L (9-52); ALBUMIN 2.8 g/dL (3.5-5.0); ALKALINE PHOSPHATASE 45 U/L (38-126); ANION GAP 8 (5-19); ASPARTATE AMINO TRANSFERASE 50 U/L (14-36); BILIRUBIN,DIRECT 0.5 mg/dL (0.0-0.4); BILIRUBIN,TOTAL 0.8 mg/dL (0.2-1.3); BLOOD UREA NITROGEN 3 mg/dL (7-20); CALCIUM 7.5 mg/dL (8.4-10.2); CARBON DIOXIDE 16 mmol/L (22-30); CHLORIDE 119 mmol/L (98-107); GLUCOSE 75 mg/dL (75-110); POTASSIUM 3.8 mmol/L (3.6-5.0); SODIUM 142.5 mmol/L (137-145); TOTAL PROTEIN 5.6 g/dL (6.3-8.2)
[2018-04-27 04:47] LABS: HYPOCHROMASIA SLIGHT; POIKILOCYTOSIS SLIGHT; POLYCHROMASIA SLIGHT; TOXIC GRANULATION SLIGHT
[2018-04-27 04:48] LABS: PLATELET COMMENT DECREASED; TARGET CELLS SLIGHT
[2018-04-27] MEDS: LORAZEPAM INJ 2 MG/1 ML VIAL (TAPER DOSING) IV SCH (05:22)
[2018-04-27] MEDS: PROPRANOLOL HCL 10 MG TABLET PO SCH (05:23)
[2018-04-27] MEDS: HEPARIN SOD (PORCINE) 5,000 UNIT/ML 1 ML SYRINGE SUBCUT SCH ×3 (05:23→21:24)
[2018-04-27 07:12] LABS: OXALATE CREATININE RATIO URINE 19.5 mg/g creat (9.2-45.4)
--- NOTE | 2018-04-27 09:46 | PDOC PROGRESS REPORT ---
Subjective Progress Note for:: 04/27/18 Subjective:: TAMI PEMBERTON is a 37 year old female who presented to the emergency room during the evening of 04/24/2018 complaining of dyspnea, nausea and severe anxiety with a panic attack. She has a history of excessive and heavy alcohol use on a regular basis and had not had any alcohol for 12 to 24 hours prior to onset of her symptoms. She describes the dyspnea as severe and that she was having a great deal of difficulty initiating the inhalation portion of her respiratory cycle. Her nausea was moderate in intensity and was not accompanied by vomiting, chest pain or cough. Her anxiety was severe with a panic attack and was not responsive to hydroxyzine when taken. In the emergency room she was found to be significantly acidotic and tachycardic with a high level of anxiety which did not respond to treatment with diazepam. She was subsequently admitted to the intensive care unit and treated with IV Ativan and IV fluids. At the time of this evaluation Tami is somnolent though arousable but is unable to provide any further information to supplement her medical history. 04/27/18: Tami is awake today and states she feels like having something to eat and drink she is no longer feeling anxious, dyspneic, nauseous or panic stricken. Her tachycardia has been well controlled with beta-robert and her blood pressure is also reasonably well controlled utilizing same medication. She will be continued on a longer acting form of beta-robert and she will be started on a q. 8-hour dose of clonazepam. Her activity level will be increased today and she will be started on a cardiac diet. A psychiatry consultation will be obtained to evaluate her for appropriate and safe disposition given her multiple psychiatric problems and a history of a recent increase in alcohol use. Her metabolic acidosis has resolved per her laboratory evaluation this morning. She may be ready for discharge as early as 04/28/2018. Reason For Visit: METABOLIC ACIDIOSIS, ETOH WITHDRAW Physical Exam Vital Signs: Temp Pulse Resp BP Pulse Ox 99.9 F 100 24 H 152/94 H 95 04/27/18 05:01 04/26/18 22:00 04/27/18 04:00 04/27/18 03:51 04/27/18 04:00 Intake & Output 04/26/18 04/27/18 04/28/18 06:59 06:59 06:59 Intake Total 4024.4 5046 Output Total 835 1100 Balance 3189.4 3946 Weight 55.2 kg 59.5 kg General appearance: PRESENT: no acute distress, cooperative Head exam: PRESENT: atraumatic, normocephalic Eye exam: ABSENT: conjunctival injection, periorbital swelling, scleral icterus Ear exam: PRESENT: normal external ear exam. ABSENT: bleeding, drainage Mouth exam: PRESENT: dry mucosa, neck supple, tongue midline Neck exam: ABSENT: thyromegaly, tracheal deviation Respiratory exam: PRESENT: clear to auscultation kranthi, symmetrical, unlabored Cardiovascular exam: PRESENT: RRR. ABSENT: bradycardia, clicks, diastolic murmur, gallop, rubs, systolic murmur, tachycardia Vascular exam: PRESENT: normal capillary refill. ABSENT: pallor GI/Abdominal exam: PRESENT: normal bowel sounds, soft Rectal exam: PRESENT: deferred Extremities exam: ABSENT: joint swelling, pedal edema Musculoskeletal exam: PRESENT: full ROM, normal inspection Neurological exam: PRESENT: alert, oriented to person, oriented to place, oriented to time, oriented to situation, CN II-XII grossly intact. ABSENT: motor sensory deficit Psychiatric exam: PRESENT: appropriate affect, normal mood Skin exam: ABSENT: jaundice, rash, urticaria Results Laboratory Results: 04/27/18 04:15 04/27/18 04:15 04/26/18 04/26/18 04/26/18 18:00 18:00 18:00 WBC 3.3 L RBC 3.05 L Hgb 9.2 L Hct 28.4 L MCV 93 MCH 30.3 MCHC 32.6 RDW 27.5 H Plt Count 138 L Seg Neutrophils % Not Reportable Lymphocytes % Not Reportable Monocytes % Not Reportable Eosinophils % Not Reportable Basophils % Not Reportable Absolute Neutrophils Not Reportable Absolute Lymphocytes Not Reportable Absolute Monocytes Not Reportable Absolute Eosinophils Not Reportable Absolute Basophils Not Reportable Sodium 142.5 Potassium 3.7 Chloride 116 H Carbon Dioxide 16 L Anion Gap 11 BUN 4 L Creatinine 0.42 L Est GFR ( Amer) > 60 Est GFR (Non-Af Amer) > 60 Glucose 91 Calcium 7.8 L Magnesium 1.6 Total Bilirubin 0.8 AST 58 H ALT 39 Alkaline Phosphatase 54 Total Protein 5.9 L Albumin 2.9 L TSH 3.11 10/03/18 10/03/18 04:15 04:15 WBC 4.1 RBC 2.62 L Hgb 8.2 L Hct 24.3 L MCV 93 MCH 31.3 MCHC 33.7 RDW 27.7 H Plt Count 116 L Seg Neutrophils % 61.7 Lymphocytes % 28.0 Monocytes % 9.0 Eosinophils % 0.6 Basophils % 0.7 Absolute Neutrophils 2.5 Absolute Lymphocytes 1.1 Absolute Monocytes 0.4 Absolute Eosinophils 0.0 Absolute Basophils 0.0 Sodium 142.5 Potassium 3.8 Chloride 119 H Carbon Dioxide 16 L Anion Gap 8 BUN 3 L Creatinine 0.43 L Est GFR ( Amer) > 60 Est GFR (Non-Af Amer) > 60 Glucose 75 Calcium 7.5 L Magnesium 1.9 Total Bilirubin 0.8 AST 50 H ALT 33 Alkaline Phosphatase 45 Total Protein 5.6 L Albumin 2.8 L TSH Impressions: Chest X-Ray 04/25/18 00:00 IMPRESSION: No acute disease. KUB X-Ray 04/25/18 10:20 IMPRESSION: Nasogastric tube in the stomach. Assessment & Plan - Diagnosis (1) Alcohol withdrawal Qualifiers: Complication of substance-induced condition: with unspecified complication Qualified Code(s): F10.239 - Alcohol dependence with withdrawal, unspecified Is this a current diagnosis for this admission?: Yes Plan: 04/26/18: Continue IV fluid support at a higher flow rate to support her intravascular volume. CIWA withdrawal regiment utilizing Ativan. Add beta-blockade to help control the tachycardia. Monitor vital signs and intervene as needed. 04/27/18: We will discontinue IV fluids and initiate an oral diet and encourage oral fluids. Patient will ambulate initially with assistance and then as tolerated with ambulation encouraged. Will convert her beta-blockade to atenolol 100 mg daily, and her lorazepam to clonazepam 1 mg every 8 hours with as needed lorazepam IV and the CIWA protocol as ordered yesterday. Continue to monitor metabolic status with daily laboratory evaluation. Psychiatric consultation for evaluation to determine reasonable, safe and appropriate discharge options for this patient from a psychiatric viewpoint. (2) Metabolic acidosis Is this a current diagnosis for this admission?: Yes Plan: Metabolic acidosis is most likely induced by her alcohol consumption and the abrupt stoppage has brought her for treatment and therefore recognition of this phenomenon. The acidosis will be corrected with IV fluid and replacement of electrolytes as appropriate. Monitor daily lab work. (3) Hypokalemia Is this a current diagnosis for this admission?: Yes Plan: Potassium replacement per protocol for hypokalemia. Follow daily lab work. (4) Hypomagnesemia Is this a current diagnosis for this admission?: Yes Plan: Magnesium supplementation to replete diminished stores per protocol. Follow daily laboratory values. - Time Time Spent with patient: 25-34 minutes Medications reviewed and adjusted accordingly: Yes Anticipated discharge: Home - As long as psychiatry believes that patient can be safely and appropriately discharged back to her home environment this will be done, however if psychiatry recommends a different disposition as being in the patient's best interest this will be pursued with the assistance of discharge planning. Within: within 48 hours
[2018-04-27] MEDS ORDERED: CLONAZEPAM 1 MG TABLET PO SCH (10:00)
[2018-04-27] MEDS: ATENOLOL 50 MG TABLET PO SCH (10:51)
[2018-04-27] MEDS: CLONAZEPAM 1 MG TABLET PO SCH ×2 (15:36→21:25)
--- NOTE | 2018-04-27 16:31 | PSYCHOLOGICAL NOTE ---
Psych Note - Psych Note Psych Note: Reason For Consult: Substance abuse Patient is a 37-year-old female with a past medical history of alcoholism, PTSD , anxiety who presents with feelings of shortness of breath, nausea and anxiety. Clinician attempted evaluation however patient was unable to fully engage. Patient was able to disclose that she drinks alcohol 3-4 times a week and denies any other substance use. Patient was orientated to place however reports that she did not know why she was at the hospital. Patient deteriorated into mumbling and incoherent speech. Patient never open her eyes. When clinician asked if the patient was interested in sobriety patient did not respond. Patient will be reevaluated at a later time.
[2018-04-27] MEDS: NORMAL SALINE 1000 ML 1,000 ML with MAGNESIUM SULFATE 8 MEQ, THIAMINE HCL 100 MG, MVI, ... IV SCH ×4 (18:03)
[2018-04-27] MEDS: ACETAMINOPHEN 325 MG TABLET PO PRN (19:50)
[2018-04-28] MEDS: ACETAMINOPHEN 325 MG TABLET PO PRN ×3 (00:44→17:23)
[2018-04-28] MEDS: LORAZEPAM INJ 2 MG/ML VIAL (4 MG PRN DOSE) IV (00:55)
[2018-04-28 06:04] LABS: HEMATOCRIT 24.1 % (36.0-47.0); HEMOGLOBIN 8.2 g/dL (12.0-15.5); MEAN CORPUSCULAR HGB CONC 33.9 g/dL (32.0-36.0); MEAN CORPUSCULAR VOLUME 92 fl (80-97); PLATELET COUNT 179 10^3/uL (150-450); RED BLOOD COUNT 2.63 10^6/uL (3.72-5.28); RED CELL DISTRIBUTION WIDTH 27.7 % (11.5-14.0); WHITE BLOOD COUNT 7.4 10^3/uL (4.0-10.5)
[2018-04-28] MEDS: HEPARIN SOD (PORCINE) 5,000 UNIT/ML 1 ML SYRINGE SUBCUT SCH ×3 (06:19→21:30)
[2018-04-28 06:28] LABS: ABSOLUTE LYMPHOCYTES# (MANUAL) 1.5 10^3/uL (0.5-4.7); ABSOLUTE MONOCYTES # (MANUAL) 0.7 10^3/uL (0.1-1.4); ABSOLUTE NEUTROPHILS# (MANUAL) 5.2 10^3/uL (1.7-8.2); BAND NEUTROPHILS % (MANUAL) 2 % (3-5); BASOPHILS % (MANUAL) 0 % (0-2); EOSINOPHILS % (MANUAL) 0 % (0-6); LYMPHOCYTES % (MANUAL) 20 % (13-45); MONOCYTES % (MANUAL) 10 % (3-13); NUCLEATED RED BLOOD CELLS 4 /100 WBC (0); SEGMENTED NEUTROPHILS % (MAN) 68 % (42-78); TOTAL CELLS COUNTED 100; TOXIC GRANULATION 1+; TOXIC VACUOLATION PRESENT
[2018-04-28 06:29] LABS: ANISOCYTOSIS 3+; HYPOCHROMASIA 2+; PAPPENHEIMER BODIES PRESENT; PLATELET COMMENT ADEQUATE; PLATELET GIANT PRESENT; PLATELET LARGE PRESENT; POIKILOCYTOSIS 1+; SCHISTOCYTES SLIGHT; TARGET CELLS SLIGHT
[2018-04-28 09:08] LABS: ALANINE AMINOTRANSFERASE 34 U/L (9-52); ALBUMIN 2.8 g/dL (3.5-5.0); ALKALINE PHOSPHATASE 57 U/L (38-126); ANION GAP 13 (5-19); ASPARTATE AMINO TRANSFERASE 45 U/L (14-36); BILIRUBIN,DIRECT 0.5 mg/dL (0.0-0.4); BILIRUBIN,TOTAL 0.7 mg/dL (0.2-1.3); BLOOD UREA NITROGEN 2 mg/dL (7-20); CALCIUM 8.1 mg/dL (8.4-10.2); CARBON DIOXIDE 17 mmol/L (22-30); CHLORIDE 108 mmol/L (98-107); GLUCOSE 89 mg/dL (75-110); SODIUM 138.2 mmol/L (137-145); TOTAL PROTEIN 5.8 g/dL (6.3-8.2)
[2018-04-28 09:11] LABS: POTASSIUM 2.9 mmol/L (3.6-5.0)
[2018-04-28 09:15] LABS: APPEARANCE,URINE CLEAR; BILIRUBIN,URINE NEGATIVE (NEGATIVE); COLOR,URINE YELLOW; GLUCOSE, URINE NEGATIVE (NEGATIVE); KETONES,URINE 20 mg/dL (NEGATIVE); LEUKOCYTE ESTERASE,URINE NEGATIVE (NEGATIVE); NITRITE,URINE NEGATIVE (NEGATIVE); PROTEIN,URINE 30 mg/dL (NEGATIVE); URINE SPECIFIC GRAVITY 1.012
--- NOTE | 2018-04-28 10:33 | RADIOLOGY REPORT (SQ) ---
EXAM DESCRIPTION: CHEST SINGLE VIEW COMPLETED DATE/TIME: 04/28/2018 9:02 am REASON FOR STUDY: New onset fever in a hospitalized patient COMPARISON: 04/25/2018 EXAM PARAMETERS: NUMBER OF VIEWS: One view. TECHNIQUE: Single frontal radiographic view of the chest acquired. RADIATION DOSE: NA LIMITATIONS: None. FINDINGS: LUNGS AND PLEURA: There is ill-defined increased density in the left lung base which could represent a developing infiltrate or atelectatic changes. There is some blunting of the left costop hrenic angle which I cannot exclude is a tiny left pleural effusion. Remaining lung chong are clear . MEDIASTINUM AND HILAR STRUCTURES: No masses. Contour normal. HEART AND VASCULAR STRUCTURES: Heart normal in size. Normal vasculature. BONES: No acute findings. HARDWARE: Central line is unchanged in position. OTHER: No other significant finding. IMPRESSION: Left basilar density as noted above TECHNICAL DOCUMENTATION: JOB ID: [id number] [employer]- All Rights Reserved Reading location - IP/workstation name: [email or web address]
[2018-04-28] MEDS ORDERED: POTASSIUM CHLORIDE 10 MEQ CAPSULE.ER PO ONE (10:50)
[2018-04-28] MEDS: CLONAZEPAM 1 MG TABLET PO SCH ×3 (10:54→21:30)
[2018-04-28] MEDS: ATENOLOL 50 MG TABLET PO SCH (10:54)
--- NOTE | 2018-04-28 11:16 | RADIOLOGY REPORT (SQ) ---
EXAM DESCRIPTION: CT HEAD WITHOUT COMPLETED DATE/TIME: 04/28/2018 10:45 am REASON FOR STUDY: New onset fever and a hospitalized patient COMPARISON: None. TECHNIQUE: Axial images acquired through the brain without intravenous contrast. Images reviewed wi th bone, brain and subdural windows. Additional sagittal and coronal reconstructions were generated. Images stored on PACS. All CT scanners at this facility use dose modulation, iterative reconstruction, and/or weight based d osing when appropriate to reduce radiation dose to as low as reasonably achievable (ALARA). [facility]: Dose Right [facility]: CareDose [facility]: Dose Right [facility]: Teradose 4D [facility]: Smart GRUZOBZOR RADIATION DOSE: CT Rad equipment meets quality standard of care and radiation dose reduction techniq ues were employed. CTDIvol: 48.7 mGy. DLP: 1029 mGy-cm. mGy. LIMITATIONS: None. FINDINGS: VENTRICLES: Normal size and contour. CEREBRUM: No masses. No hemorrhage. No midline shift. No evidence for acute infarction. Normal gra y/white matter differentiation. No areas of low density in the white matter. CEREBELLUM: No masses. No hemorrhage. No alteration of density. No evidence for acute infarction. EXTRAAXIAL SPACES: No fluid collections. No masses. ORBITS AND GLOBE: No intra- or extraconal masses. Normal contour of globe without masses. CALVARIUM: No fracture. PARANASAL SINUSES: No fluid or mucosal thickening. SOFT TISSUES: No mass or hematoma. OTHER: No other significant finding. IMPRESSION: NORMAL BRAIN CT WITHOUT CONTRAST. EVIDENCE OF ACUTE STROKE: NO. COMMENT: Quality ID # [id number]: Final reports with documentation of one or more dose reduction techniques (e.g., Automated exposure control, adjustment of the mA and/or kV according to patient size, use of iterative reconstruction technique) TECHNICAL DOCUMENTATION: JOB ID: [id number] [employer]- All Rights Reserved Reading location - IP/workstation name: [email or web address]
[2018-04-28] MEDS: POTASSIUM CHLORIDE 10 MEQ CAPSULE.ER PO SCH ×2 (11:17→17:26)
[2018-04-28 11:37] LABS: VENOUS BLOOD BASE EXCESS -7.4 mmol/L; VENOUS BLOOD HCO3 17.4 mmol/L (20-32); VENOUS BLOOD PCO2 32.1 mmHg (35-63); VENOUS BLOOD PH 7.35 (7.30-7.42)
--- NOTE | 2018-04-28 12:10 | PDOC PROGRESS REPORT ---
Subjective Progress Note for:: 04/28/18 Subjective:: TAMI PEMBERTON is a 37 year old female who presented to the emergency room during the evening of 04/24/2018 complaining of dyspnea, nausea and severe anxiety with a panic attack. She has a history of excessive and heavy alcohol use on a regular basis and had not had any alcohol for 12 to 24 hours prior to onset of her symptoms. She describes the dyspnea as severe and that she was having a great deal of difficulty initiating the inhalation portion of her respiratory cycle. Her nausea was moderate in intensity and was not accompanied by vomiting, chest pain or cough. Her anxiety was severe with a panic attack and was not responsive to hydroxyzine when taken. In the emergency room she was found to be significantly acidotic and tachycardic with a high level of anxiety which did not respond to treatment with diazepam. She was subsequently admitted to the intensive care unit and treated with IV Ativan and IV fluids. At the time of this evaluation Tami is somnolent though arousable but is unable to provide any further information to supplement her medical history. 04/27/18: Tami is awake today and states she feels like having something to eat and drink she is no longer feeling anxious, dyspneic, nauseous or panic stricken. Her tachycardia has been well controlled with beta-robert and her blood pressure is also reasonably well controlled utilizing same medication. She will be continued on a longer acting form of beta-robert and she will be started on a q. 8-hour dose of clonazepam. Her activity level will be increased today and she will be started on a cardiac diet. A psychiatry consultation will be obtained to evaluate her for appropriate and safe disposition given her multiple psychiatric problems and a history of a recent increase in alcohol use. Her metabolic acidosis has resolved per her laboratory evaluation this morning. She may be ready for discharge as early as 04/28/2018. 04/28/18: Tami is up today and sitting in her chair, she asked if she is going to be able to go home today. She remains somewhat confused although she is well oriented to person and place and is only fairly oriented to time and situation. She denies having any tremors and no significant tremors or seizures have been noted by staff. She has been noted to make confused utterances and possibly is having some type of hallucination. She is medically stable at this point and will be moved to the regular medical floor where she will require a sitter. We will continue her alcohol withdrawal regiment and follow her progress. Discharge planning will be consulted for assistance in the most appropriate disposition for this patient. Reason For Visit: METABOLIC ACIDIOSIS, ETOH WITHDRAW Physical Exam Vital Signs: Temp Pulse Resp BP Pulse Ox 102.7 F H 99 22 H 129/80 H 100 04/28/18 11:25 04/28/18 08:17 04/28/18 08:00 04/28/18 07:51 04/28/18 08:00 Intake & Output 04/27/18 04/28/18 04/29/18 06:59 06:59 06:59 Intake Total 5046 3126 120 Output Total 1100 2375 550 Balance 3946 751 -430 Weight 59.5 kg 59.3 kg General appearance: PRESENT: no acute distress, cooperative Head exam: PRESENT: atraumatic, normocephalic Eye exam: PRESENT: conjunctiva pink, EOMI. ABSENT: conjunctival injection, nystagmus, periorbital swelling, scleral icterus Ear exam: PRESENT: normal external ear exam. ABSENT: bleeding, drainage Mouth exam: PRESENT: moist, tongue midline Neck exam: ABSENT: thyromegaly, tracheal deviation - [id number] Respiratory exam: PRESENT: clear to auscultation kranthi, symmetrical, unlabored Cardiovascular exam: PRESENT: RRR. ABSENT: clicks, gallop, rubs Vascular exam: PRESENT: normal capillary refill. ABSENT: pallor GI/Abdominal exam: PRESENT: normal bowel sounds, soft Rectal exam: PRESENT: deferred Extremities exam: ABSENT: joint swelling, pedal edema Musculoskeletal exam: PRESENT: ambulatory, full ROM, normal inspection. ABSENT : deformity, dislocation Neurological exam: PRESENT: alert, oriented to person - Well oriented, oriented to place - Well oriented, oriented to time - Fairly well oriented, oriented to situation - Fairly well oriented, CN II-XII grossly intact. ABSENT: motor sensory deficit Psychiatric exam: PRESENT: depressed, flat affect, other - Mumbles to herself and occasionally speaks in a very ozm-agp-nnce manner that would be consistent with hallucinations of an auditory or visual nature. Skin exam: ABSENT: jaundice, rash, urticaria Results Laboratory Results: 04/28/18 05:56 04/28/18 05:50 04/28/18 04/28/18 04/28/18 05:50 05:56 08:40 WBC 7.4 RBC 2.63 L Hgb 8.2 L Hct 24.1 L MCV 92 MCH 31.0 MCHC 33.9 RDW 27.7 H Plt Count 179 Seg Neutrophils % Not Reportable Lymphocytes % Not Reportable Monocytes % Not Reportable Eosinophils % Not Reportable Basophils % Not Reportable Absolute Neutrophils Not Reportable Absolute Lymphocytes Not Reportable Absolute Monocytes Not Reportable Absolute Eosinophils Not Reportable Absolute Basophils Not Reportable VBG pH VBG pCO2 VBG HCO3 VBG Base Excess Sodium 138.2 Potassium 2.9 L* Chloride 108 H Carbon Dioxide 17 L Anion Gap 13 BUN 2 L Creatinine 0.45 L Est GFR ( Amer) > 60 Est GFR (Non-Af Amer) > 60 Glucose 89 Calcium 8.1 L Magnesium 2.1 Total Bilirubin 0.7 AST 45 H ALT 34 Alkaline Phosphatase 57 Total Protein 5.8 L Albumin 2.8 L Urine Color YELLOW Urine Appearance CLEAR Urine pH 6.0 Ur Specific [place] 1.012 Urine Protein 30 H Urine Glucose (UA) NEGATIVE Urine Ketones 20 H Urine Blood SMALL H Urine Nitrite NEGATIVE Ur Leukocyte Esterase NEGATIVE Urine WBC (Auto) 3 Urine RBC (Auto) 6 04/28/18 11:27 WBC RBC Hgb Hct MCV MCH MCHC RDW Plt Count Seg Neutrophils % Lymphocytes % Monocytes % Eosinophils % Basophils % Absolute Neutrophils Absolute Lymphocytes Absolute Monocytes Absolute Eosinophils Absolute Basophils VBG pH 7.35 VBG pCO2 32.1 L VBG HCO3 17.4 L VBG Base Excess -7.4 Sodium Potassium Chloride Carbon Dioxide Anion Gap BUN Creatinine Est GFR ( Amer) Est GFR (Non-Af Amer) Glucose Calcium Magnesium Total Bilirubin AST ALT Alkaline Phosphatase Total Protein Albumin Urine Color Urine Appearance Urine pH Ur Specific [place] Urine Protein Urine Glucose (UA) Urine Ketones Urine Blood Urine Nitrite Ur Leukocyte Esterase Urine WBC (Auto) Urine RBC (Auto) Impressions: KUB X-Ray 04/25/18 10:20 IMPRESSION: Nasogastric tube in the stomach. Chest X-Ray 04/28/18 00:00 IMPRESSION: Left basilar density as noted above Head CT 04/28/18 00:00 IMPRESSION: NORMAL BRAIN CT WITHOUT CONTRAST. EVIDENCE OF ACUTE STROKE: NO. Assessment & Plan - Diagnosis (1) Alcohol withdrawal Qualifiers: Complication of substance-induced condition: with delirium Qualified Code(s ): F10.231 - Alcohol dependence with withdrawal delirium Is this a current diagnosis for this admission?: Yes Plan: 04/26/18: Continue IV fluid support at a higher flow rate to support her intravascular volume. CIWA withdrawal regiment utilizing Ativan. Add beta-blockade to help control the tachycardia. Monitor vital signs and intervene as needed. 04/27/18: We will discontinue IV fluids and initiate an oral diet and encourage oral fluids. Patient will ambulate initially with assistance and then as tolerated with ambulation encouraged. Will convert her beta-blockade to atenolol 100 mg daily, and her lorazepam to clonazepam 1 mg every 8 hours with as needed lorazepam IV and the CIWA protocol as ordered yesterday. Continue to monitor metabolic status with daily laboratory evaluation. Psychiatric consultation for evaluation to determine reasonable, safe and appropriate discharge options for this patient from a psychiatric viewpoint. 04/28/18: The patient will be continued on her current medication regimen and transferred to a medical floor with a sitter today. Discharge planning services will be consulted. Psychiatry will continue to follow this patient for purposes of ongoing assessment and evaluation. (2) Metabolic acidosis Is this a current diagnosis for this admission?: Yes Plan: Metabolic acidosis is most likely induced by her alcohol consumption and the abrupt stoppage has brought her for treatment and therefore recognition of this phenomenon. The acidosis will be corrected with IV fluid and replacement of electrolytes as appropriate. Monitor daily lab work. (3) Hypokalemia Is this a current diagnosis for this admission?: Yes Plan: Potassium replacement per protocol for hypokalemia. Follow daily lab work. (4) Hypomagnesemia Is this a current diagnosis for this admission?: Yes Plan: Magnesium supplementation to replete diminished stores per protocol. Follow daily laboratory values. - Time Time Spent with patient: 35 or more minutes
--- NOTE | 2018-04-28 12:24 | PSYCHOLOGICAL NOTE ---
Psych Note - Psych Note Psych Note: Reason For Consult: Substance abuse Patient is a 37-year-old female with a past medical history of alcoholism, PTSD , anxiety who presents with feelings of shortness of breath, nausea and anxiety. Clinician attempted evaluation however patient would not awaken. Clinician will attempt again this afternoon.
[2018-04-28] MEDS: LEVOFLOXACIN 750 MG TABLET PO SCH (15:07)
[2018-04-28] MEDS: BUPROPION HCL 100 MG TABLET PO SCH ×2 (15:08→21:30)
[2018-04-28] MEDS: MAGNESIUM OXIDE 400 MG TABLET PO SCH (17:22)
[2018-04-29] MEDS: ACETAMINOPHEN 325 MG TABLET PO PRN ×2 (00:20→09:29)
[2018-04-29 04:44] LABS: HEMATOCRIT 21.9 % (36.0-47.0); MEAN CORPUSCULAR HEMOGLOBIN 30.9 pg (27.0-33.4); MEAN CORPUSCULAR HGB CONC 33.9 g/dL (32.0-36.0); MEAN CORPUSCULAR VOLUME 91 fl (80-97); PLATELET COUNT 236 10^3/uL (150-450); RED CELL DISTRIBUTION WIDTH 28.4 % (11.5-14.0); WHITE BLOOD COUNT 9.1 10^3/uL (4.0-10.5)
[2018-04-29 04:53] LABS: ALANINE AMINOTRANSFERASE 29 U/L (9-52); ALBUMIN 2.8 g/dL (3.5-5.0); ALKALINE PHOSPHATASE 54 U/L (38-126); ANION GAP 12 (5-19); ASPARTATE AMINO TRANSFERASE 40 U/L (14-36); BILIRUBIN,DIRECT 0.5 mg/dL (0.0-0.4); BILIRUBIN,TOTAL 0.6 mg/dL (0.2-1.3); BLOOD UREA NITROGEN 3 mg/dL (7-20); CALCIUM 8.6 mg/dL (8.4-10.2); CARBON DIOXIDE 19 mmol/L (22-30); CHLORIDE 105 mmol/L (98-107); GLUCOSE 87 mg/dL (75-110); TOTAL PROTEIN 5.6 g/dL (6.3-8.2)
[2018-04-29 05:03] LABS: ABSOLUTE LYMPHOCYTES# (MANUAL) 1.4 10^3/uL (0.5-4.7); ABSOLUTE MONOCYTES # (MANUAL) 2.2 10^3/uL (0.1-1.4); ABSOLUTE NEUTROPHILS# (MANUAL) 5.6 10^3/uL (1.7-8.2); BAND NEUTROPHILS % (MANUAL) 7 % (3-5); BASOPHILS % (MANUAL) 0 % (0-2); EOSINOPHILS % (MANUAL) 0 % (0-6); LYMPHOCYTES % (MANUAL) 15 % (13-45); MONOCYTES % (MANUAL) 24 % (3-13); NUCLEATED RED BLOOD CELLS 2 /100 WBC (0); SEGMENTED NEUTROPHILS % (MAN) 54 % (42-78); TOTAL CELLS COUNTED 100
[2018-04-29 05:05] LABS: ANISOCYTOSIS 4+; PLATELET COMMENT ADEQUATE; POIKILOCYTOSIS 2+; POLYCHROMASIA 1+; ROULEAUX 2+; TOXIC GRANULATION SLIGHT; TOXIC VACUOLATION PRESENT
[2018-04-29 05:06] LABS: HEMOGLOBIN 7.4 g/dL (12.0-15.5)
[2018-04-29] MEDS ORDERED: POTASSIUM CHLORIDE 20 MEQ/50 ML RTU IV ONE (05:45)
[2018-04-29] MEDS: CLONAZEPAM 1 MG TABLET PO SCH ×4 (05:54→23:43)
[2018-04-29] MEDS: BUPROPION HCL 100 MG TABLET PO SCH ×2 (05:56→14:44)
[2018-04-29] MEDS: HEPARIN SOD (PORCINE) 5,000 UNIT/ML 1 ML SYRINGE SUBCUT SCH ×2 (06:16→14:44)
[2018-04-29] MEDS: POTASSIUM CHLORIDE 10 MEQ CAPSULE.ER PO SCH ×2 (08:59→13:12)
[2018-04-29] MEDS: MAGNESIUM OXIDE 400 MG TABLET PO SCH ×2 (08:59→13:12)
[2018-04-29] MEDS: LEVOFLOXACIN 750 MG TABLET PO SCH (09:29)
[2018-04-29] MEDS ORDERED: FERROUS SULFATE 325 MG TABLET PO SCH (10:00)
[2018-04-29] MEDS ORDERED: FAMOTIDINE 20 MG TABLET PO SCH (10:00)
[2018-04-29] MEDS ORDERED: (PENDING PHARMACY ID) (Ferrous Sulfate [Ferrous Sulfate] 324 MG) PO SCH (10:00)
--- NOTE | 2018-04-29 10:21 | RADIOLOGY REPORT (SQ) ---
EXAM DESCRIPTION: CHEST 2 VIEWS COMPLETED DATE/TIME: 04/29/2018 9:51 am REASON FOR STUDY: Left PNA?? COMPARISON: 04/28/2018 EXAM PARAMETERS: NUMBER OF VIEWS: two views TECHNIQUE: Digital Frontal and Lateral radiographic views of the chest acquired. RADIATION DOSE: NA LIMITATIONS: none FINDINGS: LUNGS AND PLEURA: Small left pleural effusion and left lower lobe airspace disease not sig nificantly changed. Right lung is clear. MEDIASTINUM AND HILAR STRUCTURES: No masses or contour abnormalities. HEART AND VASCULAR STRUCTURES: Heart normal size. No evidence for failure. BONES: No acute findings. HARDWARE: None in the chest. OTHER: Stable position of left-sided central line. IMPRESSION: Left lower lobe pneumonia. No significant change. TECHNICAL DOCUMENTATION: JOB ID: [id number] [employer]- All Rights Reserved Reading location - IP/workstation name: [email or web address]
[2018-04-29] MEDS: ATENOLOL 50 MG TABLET PO SCH (10:25)
[2018-04-29 14:55] LABS: HEMATOCRIT 25.4 % (36.0-47.0); HEMOGLOBIN 8.8 g/dL (12.0-15.5); MEAN CORPUSCULAR HEMOGLOBIN 31.2 pg (27.0-33.4); MEAN CORPUSCULAR HGB CONC 34.6 g/dL (32.0-36.0); MEAN CORPUSCULAR VOLUME 90 fl (80-97); PLATELET COUNT 235 10^3/uL (150-450); RED BLOOD COUNT 2.82 10^6/uL (3.72-5.28); RED CELL DISTRIBUTION WIDTH 24.9 % (11.5-14.0); WHITE BLOOD COUNT 10.3 10^3/uL (4.0-10.5)
[2018-04-29 15:13] LABS: POTASSIUM 3.2 mmol/L (3.6-5.0)
[2018-04-29 15:15] LABS: ABSOLUTE LYMPHOCYTES# (MANUAL) 1.8 10^3/uL (0.5-4.7); ABSOLUTE MONOCYTES # (MANUAL) 1.4 10^3/uL (0.1-1.4); ABSOLUTE NEUTROPHILS# (MANUAL) 7.1 10^3/uL (1.7-8.2); BAND NEUTROPHILS % (MANUAL) 3 % (3-5); BASOPHILS % (MANUAL) 0 % (0-2); EOSINOPHILS % (MANUAL) 0 % (0-6); LYMPHOCYTES % (MANUAL) 17 % (13-45); MONOCYTES % (MANUAL) 14 % (3-13); NUCLEATED RED BLOOD CELLS 1 /100 WBC (0); SEGMENTED NEUTROPHILS % (MAN) 66 % (42-78); TOTAL CELLS COUNTED 100
[2018-04-29 15:16] LABS: ANISOCYTOSIS 3+; OVALOCYTES SLIGHT; POIKILOCYTOSIS 1+; POLYCHROMASIA SLIGHT; STOMATOCYTES 1+; TOXIC GRANULATION 2+; TOXIC VACUOLATION PRESENT
[2018-04-29 15:17] LABS: PLATELET COMMENT ADEQUATE
--- NOTE | 2018-04-29 15:34 | PDOC PROGRESS REPORT ---
Subjective Progress Note for:: 04/29/18 Subjective:: TAMI PEMBERTON is a 37 year old female who presented to the emergency room during the evening of 04/24/2018 complaining of dyspnea, nausea and severe anxiety with a panic attack. She has a history of excessive and heavy alcohol use on a regular basis and had not had any alcohol for 12 to 24 hours prior to onset of her symptoms. She describes the dyspnea as severe and that she was having a great deal of difficulty initiating the inhalation portion of her respiratory cycle. Her nausea was moderate in intensity and was not accompanied by vomiting, chest pain or cough. Her anxiety was severe with a panic attack and was not responsive to hydroxyzine when taken. In the emergency room she was found to be significantly acidotic and tachycardic with a high level of anxiety which did not respond to treatment with diazepam. She was subsequently admitted to the intensive care unit and treated with IV Ativan and IV fluids. At the time of this evaluation Tami is somnolent though arousable but is unable to provide any further information to supplement her medical history. 04/27/18: Tami is awake today and states she feels like having something to eat and drink she is no longer feeling anxious, dyspneic, nauseous or panic stricken. Her tachycardia has been well controlled with beta-robert and her blood pressure is also reasonably well controlled utilizing same medication. She will be continued on a longer acting form of beta-robert and she will be started on a q. 8-hour dose of clonazepam. Her activity level will be increased today and she will be started on a cardiac diet. A psychiatry consultation will be obtained to evaluate her for appropriate and safe disposition given her multiple psychiatric problems and a history of a recent increase in alcohol use. Her metabolic acidosis has resolved per her laboratory evaluation this morning. She may be ready for discharge as early as 04/28/2018. 04/28/18: Tami is up today and sitting in her chair, she asked if she is going to be able to go home today. She remains somewhat confused although she is well oriented to person and place and is only fairly oriented to time and situation. She denies having any tremors and no significant tremors or seizures have been noted by staff. She has been noted to make confused utterances and possibly is having some type of hallucination. She is medically stable at this point and will be moved to the regular medical floor where she will require a sitter. We will continue her alcohol withdrawal regiment and follow her progress. Discharge planning will be consulted for assistance in the most appropriate disposition for this patient. 04/29/18: Tami is again awake and resting in bed and asked if she may be going home today. I explained her that she has a pneumonia in her left chest and she is going to need to be on some antibiotics for a while and that she is not been able to tolerate enough activity to go home and be on her own. She is significantly more conversant than she has been on prior evaluations and there is little or no confusion in her attitude today. Her exam shows course rales present in the left base anteriorly and posteriorly. The remainder of her exam is essentially unchanged from previous evaluations. Nursing staff explains that she is not taking oral solids very well but is able to tolerate oral liquids. Patient's medications will be converted to either liquid form or IV form she is unable to swallow pills or capsules at this time. Reason For Visit: METABOLIC ACIDIOSIS, ETOH WITHDRAW Physical Exam Vital Signs: Temp Pulse Resp BP Pulse Ox 100.0 F 90 26 H 117/82 99 04/29/18 12:01 04/29/18 11:58 04/29/18 12:01 04/29/18 12:00 04/29/18 12:01 Intake & Output 04/27/18 04/28/18 04/29/18 23:59 23:59 23:59 Intake Total 5072 120 520 Output Total 2275 1575 600 Balance 2797 -1455 -80 Weight 59.5 kg 59.3 kg 59.4 kg General appearance: PRESENT: no acute distress, cooperative Head exam: PRESENT: atraumatic, normocephalic Eye exam: PRESENT: EOMI. ABSENT: conjunctival injection, nystagmus, periorbital swelling, scleral icterus Ear exam: PRESENT: normal external ear exam. ABSENT: bleeding, drainage Mouth exam: PRESENT: moist, tongue midline Neck exam: ABSENT: thyromegaly, tracheal deviation Respiratory exam: PRESENT: rales - Left base anteriorly, posteriorly and laterally, symmetrical, unlabored. ABSENT: accessory muscle use, prolonged expiratory phas, retraction, rhonchi, wheezes Cardiovascular exam: PRESENT: RRR. ABSENT: clicks, diastolic murmur, gallop, rubs, systolic murmur Vascular exam: PRESENT: normal capillary refill. ABSENT: pallor GI/Abdominal exam: PRESENT: normal bowel sounds, soft Rectal exam: PRESENT: deferred Extremities exam: ABSENT: joint swelling, pedal edema Musculoskeletal exam: PRESENT: full ROM, normal inspection Neurological exam: PRESENT: alert, awake, oriented to person, oriented to place , oriented to time, oriented to situation, CN II-XII grossly intact. ABSENT: motor sensory deficit Psychiatric exam: PRESENT: appropriate affect, normal mood Skin exam: ABSENT: jaundice, rash, urticaria Results Laboratory Results: 04/29/18 04/29/18 04/29/18 04:20 04:20 05:53 WBC 9.1 RBC 2.40 L Hgb 7.4 L Hct 21.9 L MCV 91 MCH 30.9 MCHC 33.9 RDW 28.4 H Plt Count 236 Seg Neutrophils % Not Reportable Lymphocytes % Not Reportable Monocytes % Not Reportable Eosinophils % Not Reportable Basophils % Not Reportable Absolute Neutrophils Not Reportable Absolute Lymphocytes Not Reportable Absolute Monocytes Not Reportable Absolute Eosinophils Not Reportable Absolute Basophils Not Reportable Sodium 136.0 L Potassium 3.0 L* Chloride 105 Carbon Dioxide 19 L Anion Gap 12 BUN 3 L Creatinine 0.48 L Est GFR ( Amer) > 60 Est GFR (Non-Af Amer) > 60 Glucose 87 Calcium 8.6 Magnesium 1.8 Total Bilirubin 0.6 AST 40 H ALT 29 Alkaline Phosphatase 54 Total Protein 5.6 L Albumin 2.8 L Blood Type O POSITIVE Antibody Screen NEGATIVE 04/29/18 14:30 WBC RBC Hgb Hct MCV MCH MCHC RDW Plt Count Seg Neutrophils % Not Reportable Lymphocytes % Not Reportable Monocytes % Not Reportable Eosinophils % Not Reportable Basophils % Not Reportable Absolute Neutrophils Not Reportable Absolute Lymphocytes Not Reportable Absolute Monocytes Not Reportable Absolute Eosinophils Not Reportable Absolute Basophils Not Reportable Sodium Potassium Chloride Carbon Dioxide Anion Gap BUN Creatinine Est GFR ( Amer) Est GFR (Non-Af Amer) Glucose Calcium Magnesium Total Bilirubin AST ALT Alkaline Phosphatase Total Protein Albumin Blood Type Antibody Screen Impressions: KUB X-Ray 04/25/18 10:20 IMPRESSION: Nasogastric tube in the stomach. Head CT 04/28/18 00:00 IMPRESSION: NORMAL BRAIN CT WITHOUT CONTRAST. EVIDENCE OF ACUTE STROKE: NO. Chest X-Ray 04/29/18 00:00 IMPRESSION: Left lower lobe pneumonia. No significant change. Assessment & Plan - Diagnosis (1) Hospital acquired PNA Is this a current diagnosis for this admission?: Yes Plan: Patient has developed a fever as well as physical exam findings consistent with a left lower lobe pneumonia. Chest x-ray does confirm the presence of the pneumonia and she has been started on a regiment with Levaquin 750 mg daily to which she has shown a good response with reduction in her fever and improvement in her mental status, additionally will also cover with ertapenem 1 g daily she will again require IV therapy. Continue to monitor her temperature, vital signs and daily lab work as we treat her pneumonia. (2) Alcohol withdrawal Qualifiers: Complication of substance-induced condition: with delirium Qualified Code(s ): F10.231 - Alcohol dependence with withdrawal delirium Is this a current diagnosis for this admission?: Yes Plan: 04/26/18: Continue IV fluid support at a higher flow rate to support her intravascular volume. CIWA withdrawal regiment utilizing Ativan. Add beta-blockade to help control the tachycardia. Monitor vital signs and intervene as needed. 04/27/18: We will discontinue IV fluids and initiate an oral diet and encourage oral fluids. Patient will ambulate initially with assistance and then as tolerated with ambulation encouraged. Will convert her beta-blockade to atenolol 100 mg daily, and her lorazepam to clonazepam 1 mg every 8 hours with as needed lorazepam IV and the CIWA protocol as ordered yesterday. Continue to monitor metabolic status with daily laboratory evaluation. Psychiatric consultation for evaluation to determine reasonable, safe and appropriate discharge options for this patient from a psychiatric viewpoint. 04/28/18: The patient will be continued on her current medication regimen and transferred to a medical floor with a sitter today. Discharge planning services will be consulted. Psychiatry will continue to follow this patient for purposes of ongoing assessment and evaluation. 04/29/18: Patient's medications will be changed to IV or oral fluids as she has not been able to swallow oral pills very well. I will ask psychiatry to come back and see the patient begin either today or sometime within the next few days if she is significantly improved and can probably be of more assistance in determining her ongoing needs however feel psychiatric input is still very much desired. Patient will be transferred to medical floor when beds are available with an appropriate sitter. (3) Metabolic acidosis Is this a current diagnosis for this admission?: Yes Plan: Metabolic acidosis is most likely induced by her alcohol consumption and the abrupt stoppage has brought her for treatment and therefore recognition of this phenomenon. The acidosis will be corrected with IV fluid and replacement of electrolytes as appropriate. Monitor daily lab work. (4) Hypokalemia Is this a current diagnosis for this admission?: Yes Plan: Potassium replacement per protocol for hypokalemia. Follow daily lab work. (5) Hypomagnesemia Is this a current diagnosis for this admission?: Yes Plan: Magnesium supplementation to replete diminished stores per protocol. Follow daily laboratory values. - Time Time Spent with patient: 35 or more minutes Medications reviewed and adjusted accordingly: Yes
[2018-04-29] MEDS ORDERED: ERTAPENEM SODIUM INJ 1 GM VIAL IV SCH (15:45)
[2018-04-29] MEDS ORDERED: MAGNESIUM SULFATE 1 GM in D5W 100 ML IV ONE (16:00)
[2018-04-29] MEDS: POTASSIUM CHLORIDE 20 MEQ/15 ML UDCUP PO SCH (16:15)
[2018-04-29] MEDS ORDERED: MAGNESIUM SULFATE/D5W 1 GM/100 ML RTUPB IV ONE (16:15)
[2018-04-29] MEDS: POTASSIUM CHLORIDE 20 MEQ/50 ML RTU IV SCH ×2 (16:16→18:23)
[2018-04-29] MEDS: ENOXAPARIN SODIUM INJ 40 MG/0.4 ML DISP.SYRIN SUBCUT SCH (16:18)
[2018-04-29] MEDS: IPRATROPIUM/ALBUTEROL 0.5-2.5 MG/3 ML AMPUL NEB SCH (16:55)
[2018-04-29] MEDS: ERTAPENEM SODIUM 1 GM in NORMAL SALINE 50 ML IV SCH (23:42)
[2018-04-29] MEDS: PANTOPRAZOLE SODIUM 40 MG VIAL IV SCH (23:44)
[2018-04-30] MEDS: IPRATROPIUM/ALBUTEROL 0.5-2.5 MG/3 ML AMPUL NEB SCH ×4 (00:45→23:20)
[2018-04-30 06:26] LABS: ANION GAP 10 (5-19); CALCIUM 8.3 mg/dL (8.4-10.2); CARBON DIOXIDE 22 mmol/L (22-30); CHLORIDE 104 mmol/L (98-107); GLUCOSE 90 mg/dL (75-110); POTASSIUM 3.4 mmol/L (3.6-5.0); SODIUM 135.7 mmol/L (137-145)
[2018-04-30 07:26] LABS: BLOOD UREA NITROGEN < 2 mg/dL (7-20)
[2018-04-30] MEDS: POTASSIUM CHLORIDE 20 MEQ/15 ML UDCUP PO SCH ×3 (11:16→15:51)
[2018-04-30] MEDS: ATENOLOL 50 MG TABLET PO SCH (11:24)
[2018-04-30] MEDS: LEVOFLOXACIN 750 MG/D5W RTU 750 MG/150 ML RTUPB IV SCH (11:24)
[2018-04-30] MEDS: PANTOPRAZOLE SODIUM 40 MG VIAL IV SCH (11:24)
[2018-04-30] MEDS: ENOXAPARIN SODIUM INJ 40 MG/0.4 ML DISP.SYRIN SUBCUT SCH (11:27)
--- NOTE | 2018-04-30 13:20 | PDOC PROGRESS REPORT ---
Subjective Progress Note for:: 04/30/18 Subjective:: TAMI PEMBERTON is a 37 year old female who presented to the emergency room during the evening of 04/24/2018 complaining of dyspnea, nausea and severe anxiety with a panic attack. She has a history of excessive and heavy alcohol use on a regular basis and had not had any alcohol for 12 to 24 hours prior to onset of her symptoms. She describes the dyspnea as severe and that she was having a great deal of difficulty initiating the inhalation portion of her respiratory cycle. Her nausea was moderate in intensity and was not accompanied by vomiting, chest pain or cough. Her anxiety was severe with a panic attack and was not responsive to hydroxyzine when taken. In the emergency room she was found to be significantly acidotic and tachycardic with a high level of anxiety which did not respond to treatment with diazepam. She was subsequently admitted to the intensive care unit and treated with IV Ativan and IV fluids. At the time of this evaluation Tami is somnolent though arousable but is unable to provide any further information to supplement her medical history. 04/27/18: Tami is awake today and states she feels like having something to eat and drink she is no longer feeling anxious, dyspneic, nauseous or panic stricken. Her tachycardia has been well controlled with beta-robert and her blood pressure is also reasonably well controlled utilizing same medication. She will be continued on a longer acting form of beta-robert and she will be started on a q. 8-hour dose of clonazepam. Her activity level will be increased today and she will be started on a cardiac diet. A psychiatry consultation will be obtained to evaluate her for appropriate and safe disposition given her multiple psychiatric problems and a history of a recent increase in alcohol use. Her metabolic acidosis has resolved per her laboratory evaluation this morning. She may be ready for discharge as early as 04/28/2018. 04/28/18: Tami is up today and sitting in her chair, she asked if she is going to be able to go home today. She remains somewhat confused although she is well oriented to person and place and is only fairly oriented to time and situation. She denies having any tremors and no significant tremors or seizures have been noted by staff. She has been noted to make confused utterances and possibly is having some type of hallucination. She is medically stable at this point and will be moved to the regular medical floor where she will require a sitter. We will continue her alcohol withdrawal regiment and follow her progress. Discharge planning will be consulted for assistance in the most appropriate disposition for this patient. 04/29/18: Tami is again awake and resting in bed and asked if she may be going home today. I explained her that she has a pneumonia in her left chest and she is going to need to be on some antibiotics for a while and that she is not been able to tolerate enough activity to go home and be on her own. She is significantly more conversant than she has been on prior evaluations and there is little or no confusion in her attitude today. Her exam shows course rales present in the left base anteriorly and posteriorly. The remainder of her exam is essentially unchanged from previous evaluations. Nursing staff explains that she is not taking oral solids very well but is able to tolerate oral liquids. Patient's medications will be converted to either liquid form or IV form she is unable to swallow pills or capsules at this time. 04/30/18: Tami is resting in bed this morning when I examined her. She states that she thinks she is feeling better and would really like to go home soon. She also admits that she would really like to get outside because she would like to have a cigarette. She was counseled that cigarette smoking would be particularly bad at the present time since she has had pneumonia and was otherwise given information and counseling on smoking cessation. Her serum potassium all still low is improved today as she has been taking her oral potassium since it was changed to a liquid form. After some repeated explanations of her treatment and treatment goals she is now more willing to take her medications as prescribed as I have agreed that I will not give her any medications that have a high addiction potential or high abuse potential. To that end myself and the staff have discussed with her the appropriate use of Klonopin and she is agreed to taking this medication as prescribed. She remains mentally clear although she does demonstrate some impulsivity and poor judgment. She denies cough and chest pain and her fever has generally improved significantly since the addition of Invanz to her therapy. Her cultures show E. coli that is pansensitive and her urine and a gram positive cocci in clusters growing in 1 blood culture that has not yet been fully identified. Her chest x-ray from yesterday definitely showed a left lower lobe pneumonia, on my personal review, and this will be followed with a repeat chest x-ray on Wednesday with daily CBC, magnesium and BMP determinations to follow her hospital course for her numerous problems. I discussed her psychiatric problems with Magnus Chaparro the psychiatric counselor who has been following her. We have agreed to be very supportive of her staying away from most medications and taking only those things which are required for treatment of her disease states and not likely to be addictive or used abusively. We have also plan to have the patient [place] [facility], where she spends 3 hours a day 5 days a week, upon her discharge. I have discussed possible discharge with the patient for as the earliest date depending on the results of her blood culture. Reason For Visit: METABOLIC ACIDIOSIS, ETOH WITHDRAW Physical Exam Vital Signs: Temp Pulse Resp BP Pulse Ox 99.5 F 107 H 14 113/77 100 04/30/18 08:26 04/30/18 08:26 04/30/18 08:26 04/30/18 08:26 04/30/18 08:26 Intake & Output 04/28/18 04/29/18 04/30/18 23:59 23:59 23:59 Intake Total 120 790 Output Total 1575 1450 500 Balance -1455 -660 -500 Weight 59.3 kg 59.4 kg 59.2 kg Results Laboratory Results: 04/29/18 14:30 04/30/18 05:50 04/29/18 04/29/18 04/30/18 14:30 14:30 05:50 WBC 10.3 RBC 2.82 L Hgb 8.8 L Hct 25.4 L MCV 90 MCH 31.2 MCHC 34.6 RDW 24.9 H Plt Count 235 Seg Neutrophils % Not Reportable Lymphocytes % Not Reportable Monocytes % Not Reportable Eosinophils % Not Reportable Basophils % Not Reportable Absolute Neutrophils Not Reportable Absolute Lymphocytes Not Reportable Absolute Monocytes Not Reportable Absolute Eosinophils Not Reportable Absolute Basophils Not Reportable Sodium 135.7 L Potassium 3.2 L 3.4 L Chloride 104 Carbon Dioxide 22 Anion Gap 10 BUN < 2 L Creatinine 0.48 L Est GFR ( Amer) > 60 Est GFR (Non-Af Amer) > 60 Glucose 90 Calcium 8.3 L Magnesium 1.6 04/25/18 12:21 Blood Blood Culture - Final NO GROWTH IN 5 DAYS 04/28/18 08:40 Catheterized Urine Urine Culture - Final Escherichia Coli Staph Coagulase Negative 04/25/18 10:45 Blood Blood Culture - Final NO GROWTH IN 5 DAYS Impressions: KUB X-Ray 04/25/18 10:20 IMPRESSION: Nasogastric tube in the stomach. Head CT 04/28/18 00:00 IMPRESSION: NORMAL BRAIN CT WITHOUT CONTRAST. EVIDENCE OF ACUTE STROKE: NO. Chest X-Ray 04/29/18 00:00 IMPRESSION: Left lower lobe pneumonia. No significant change. Assessment & Plan - Diagnosis (1) Hospital acquired PNA Is this a current diagnosis for this admission?: Yes Plan: Patient has developed a fever as well as physical exam findings consistent with a left lower lobe pneumonia. Chest x-ray does confirm the presence of the left lower lobe pneumonia (my interpretation) and she has been started on a regiment with Levaquin 750 mg daily to which she has shown a fairly good response with reduction in her fever and improvement in her mental status, her fever however has not completely resolved so her Levaquin was changed back to intravenous dosing, additionally ertapenem 1 g daily IV was initiated. Continue to monitor her temperature, vital signs and daily CBC as we treat her pneumonia. I will recheck her chest x-ray on 05/02/2018. (2) Alcohol withdrawal Qualifiers: Complication of substance-induced condition: with delirium Qualified Code(s ): F10.231 - Alcohol dependence with withdrawal delirium Is this a current diagnosis for this admission?: Yes Plan: 04/26/18: Continue IV fluid support at a higher flow rate to support her intravascular volume. CIWA withdrawal regiment utilizing Ativan. Add beta-blockade to help control the tachycardia. Monitor vital signs and intervene as needed. 04/27/18: We will discontinue IV fluids and initiate an oral diet and encourage oral fluids. Patient will ambulate initially with assistance and then as tolerated with ambulation encouraged. Will convert her beta-blockade to atenolol 100 mg daily, and her lorazepam to clonazepam 1 mg every 8 hours with as needed lorazepam IV and the CIWA protocol as ordered yesterday. Continue to monitor metabolic status with daily laboratory evaluation. Psychiatric consultation for evaluation to determine reasonable, safe and appropriate discharge options for this patient from a psychiatric viewpoint. 04/28/18: The patient will be continued on her current medication regimen and transferred to a medical floor with a sitter today. Discharge planning services will be consulted. Psychiatry will continue to follow this patient for purposes of ongoing assessment and evaluation. 04/29/18: Patient's medications will be changed to IV or oral fluids as she has not been able to swallow oral pills very well. I will ask psychiatry to come back and see the patient begin either today or sometime within the next few days if she is significantly improved and can probably be of more assistance in determining her ongoing needs however feel psychiatric input is still very much desired. Patient will be transferred to medical floor when beds are available with an appropriate sitter. 04/30/18: Ms. Pemberton be moved to the fifth floor today. She has agreed to use Klonopin on an as-needed basis for her anxiety and anxiety associated symptoms. She understands that she needs to eat and drink on her own as well as take oral medications or she will not be able to be discharged as she wishes. She will be strongly encouraged to rejoin her [facility] intensive outpatient alcohol rehabilitation program, where she has been seeing a rehab counselor and getting rehabilitation therapy for 3 hours a day 5 days a week. We will strongly encourage her to continue this therapy on a daily basis instead of sporadically as she had been attending in the past. She is been strongly admonished that she needs to discontinue all use of alcohol, substances of abuse and nicotine. Smoking cessation was discussed with the patient on the visit today. (3) Metabolic acidosis Is this a current diagnosis for this admission?: Yes Plan: Metabolic acidosis is most likely induced by her alcohol consumption and the abrupt stoppage has brought her for treatment and therefore recognition of this phenomenon. The acidosis was corrected with IV fluid and replacement of electrolytes. Monitor daily lab work to evaluate for any recurrence or further related problems. (4) Hypokalemia Is this a current diagnosis for this admission?: Yes Plan: Potassium replacement per protocol for hypokalemia was initially followed. However due to difficulties in the obtaining of durable IV site and subsequent difficulties in having the patient take oral medications her potassium was difficult to bring into the normal range. When her oral potassium was switched to liquid form she was much more compliant with taking it and her potassium is significantly improved. Therefore oral potassium will be continued in the liquid form and we will follow daily lab work for ongoing evaluation of her kalemic state. (5) Hypomagnesemia Is this a current diagnosis for this admission?: Yes Plan: Magnesium supplementation to replete diminished stores per protocol. Follow daily laboratory values to ascertain the status of her serum magnesium during her hospital course. - Time Time Spent with patient: 35 or more minutes Smoking Cessation Education: 3 to 10 minutes Medications reviewed and adjusted accordingly: Yes Anticipated discharge: Home
[2018-04-30] MEDS ORDERED: NICOTINE 21 MG/24 HR PATCH.TD24 TD PRN (13:28)
[2018-04-30] MEDS ORDERED: FLUTICASONE NASAL SPRAY 50 MCG/SPRY 120 SPRAY/16 GM NASL PRN (13:36)
[2018-04-30] MEDS: CLONAZEPAM 1 MG TABLET PO PRN (14:00)
[2018-04-30 15:32] LABS: HEMATOCRIT 27.9 % (36.0-47.0); HEMOGLOBIN 9.3 g/dL (12.0-15.5); MEAN CORPUSCULAR HEMOGLOBIN 30.1 pg (27.0-33.4); MEAN CORPUSCULAR HGB CONC 33.6 g/dL (32.0-36.0); MEAN CORPUSCULAR VOLUME 90 fl (80-97); RED BLOOD COUNT 3.11 10^6/uL (3.72-5.28); RED CELL DISTRIBUTION WIDTH 24.9 % (11.5-14.0); WHITE BLOOD COUNT 11.9 10^3/uL (4.0-10.5)
[2018-04-30] MEDS: CLONAZEPAM 1 MG TABLET PO SCH (15:45)
[2018-04-30 15:47] LABS: ANION GAP 11 (5-19); BLOOD UREA NITROGEN 2 mg/dL (7-20); CALCIUM 9.3 mg/dL (8.4-10.2); CARBON DIOXIDE 23 mmol/L (22-30); CHLORIDE 103 mmol/L (98-107); GLUCOSE 103 mg/dL (75-110); POTASSIUM 3.9 mmol/L (3.6-5.0); SODIUM 136.8 mmol/L (137-145)
[2018-04-30 16:08] LABS: PLATELET COUNT 300 10^3/uL (150-450)
[2018-04-30] MEDS: ERTAPENEM SODIUM 1 GM in NORMAL SALINE 50 ML IV SCH (18:28)
[2018-04-30] MEDS: RANITIDINE HCL SYRUP 150 MG/10 ML UDCUP PO SCH (21:00)
[2018-05-01] MEDS: POTASSIUM CHLORIDE 20 MEQ/15 ML UDCUP PO SCH ×3 (07:35→17:43)
[2018-05-01] MEDS: IPRATROPIUM/ALBUTEROL 0.5-2.5 MG/3 ML AMPUL NEB SCH ×3 (07:48→23:48)
--- NOTE | 2018-05-01 09:44 | PSYCHOLOGICAL NOTE ---
Psych Note - Psych Note Psych Note: Reason For Consult: Substance abuse Patient is a 37-year-old female with a past medical history of alcoholism, PTSD , anxiety who presents with feelings of shortness of breath, nausea and anxiety. no medication recommendations at this time alcohol abuse Impression/plan: Patient is cleared for acute psychiatric services. Patient does not meet IVC criteria per [place] GS 122C. Patient attempted to stop drinking and after 3 days resulted on needing medical attention. Patient reports this has scared her and she has no interest in drinking again. While she does have mental health diagnosis, she denies taking medication because of a past event of an allergic reaction that resulted in seizures. Since that time she has not taken an medications and has no real interest in taking any. [facility] and needs [facility] through [facility]. Clinician discussed at length with patient alternate therapeutic interventions and encouraged the patient to [facility] with the [facility] for [facility] for [facility]. Patient is recommended to follow through with both mental health and substance abuse [facility]. Davis was consulted on the care and management of this patient; attending physician is in agreement with recommendations and disposition.
[2018-05-01] MEDS: ENOXAPARIN SODIUM INJ 40 MG/0.4 ML DISP.SYRIN SUBCUT SCH (10:07)
[2018-05-01] MEDS: CLONAZEPAM 1 MG TABLET PO PRN (10:11)
[2018-05-01] MEDS: ATENOLOL 50 MG TABLET PO SCH (10:31)
[2018-05-01] MEDS: LEVOFLOXACIN 750 MG/D5W RTU 750 MG/150 ML RTUPB IV SCH (10:32)
[2018-05-01] MEDS: RANITIDINE HCL SYRUP 150 MG/10 ML UDCUP PO SCH ×2 (10:32→21:40)
[2018-05-01 12:06] LABS: HEMATOCRIT 32.2 % (36.0-47.0); HEMOGLOBIN 10.7 g/dL (12.0-15.5); MEAN CORPUSCULAR HGB CONC 33.1 g/dL (32.0-36.0); MEAN CORPUSCULAR VOLUME 91 fl (80-97); RED BLOOD COUNT 3.56 10^6/uL (3.72-5.28); RED CELL DISTRIBUTION WIDTH 24.3 % (11.5-14.0); WHITE BLOOD COUNT 17.1 10^3/uL (4.0-10.5)
[2018-05-01 12:25] LABS: ANION GAP 11 (5-19); BLOOD UREA NITROGEN 2 mg/dL (7-20); CALCIUM 9.2 mg/dL (8.4-10.2); CARBON DIOXIDE 22 mmol/L (22-30); CHLORIDE 105 mmol/L (98-107); GLUCOSE 121 mg/dL (75-110); SODIUM 137.8 mmol/L (137-145)
[2018-05-01 12:34] LABS: POTASSIUM 4.8 mmol/L (3.6-5.0)
[2018-05-01 12:44] LABS: PLATELET COUNT 327 10^3/uL (150-450)
--- NOTE | 2018-05-01 17:17 | PDOC PROGRESS REPORT ---
Subjective Progress Note for:: 05/01/18 Subjective:: TAMI PEMBERTON is a 37 year old female who presented to the emergency room during the evening of 04/24/2018 complaining of dyspnea, nausea and severe anxiety with a panic attack. She has a history of excessive and heavy alcohol use on a regular basis and had not had any alcohol for 12 to 24 hours prior to onset of her symptoms. She describes the dyspnea as severe and that she was having a great deal of difficulty initiating the inhalation portion of her respiratory cycle. Her nausea was moderate in intensity and was not accompanied by vomiting, chest pain or cough. Her anxiety was severe with a panic attack and was not responsive to hydroxyzine when taken. In the emergency room she was found to be significantly acidotic and tachycardic with a high level of anxiety which did not respond to treatment with diazepam. She was subsequently admitted to the intensive care unit and treated with IV Ativan and IV fluids. At the time of this evaluation Tami is somnolent though arousable but is unable to provide any further information to supplement her medical history. 04/27/18: Tami is awake today and states she feels like having something to eat and drink she is no longer feeling anxious, dyspneic, nauseous or panic stricken. Her tachycardia has been well controlled with beta-robert and her blood pressure is also reasonably well controlled utilizing same medication. She will be continued on a longer acting form of beta-robert and she will be started on a q. 8-hour dose of clonazepam. Her activity level will be increased today and she will be started on a cardiac diet. A psychiatry consultation will be obtained to evaluate her for appropriate and safe disposition given her multiple psychiatric problems and a history of a recent increase in alcohol use. Her metabolic acidosis has resolved per her laboratory evaluation this morning. She may be ready for discharge as early as 04/28/2018. 04/28/18: Tami is up today and sitting in her chair, she asked if she is going to be able to go home today. She remains somewhat confused although she is well oriented to person and place and is only fairly oriented to time and situation. She denies having any tremors and no significant tremors or seizures have been noted by staff. She has been noted to make confused utterances and possibly is having some type of hallucination. She is medically stable at this point and will be moved to the regular medical floor where she will require a sitter. We will continue her alcohol withdrawal regiment and follow her progress. Discharge planning will be consulted for assistance in the most appropriate disposition for this patient. 04/29/18: Tami is again awake and resting in bed and asked if she may be going home today. I explained her that she has a pneumonia in her left chest and she is going to need to be on some antibiotics for a while and that she is not been able to tolerate enough activity to go home and be on her own. She is significantly more conversant than she has been on prior evaluations and there is little or no confusion in her attitude today. Her exam shows course rales present in the left base anteriorly and posteriorly. The remainder of her exam is essentially unchanged from previous evaluations. Nursing staff explains that she is not taking oral solids very well but is able to tolerate oral liquids. Patient's medications will be converted to either liquid form or IV form she is unable to swallow pills or capsules at this time. 04/30/18: Tami is resting in bed this morning when I examined her. She states that she thinks she is feeling better and would really like to go home soon. She also admits that she would really like to get outside because she would like to have a cigarette. She was counseled that cigarette smoking would be particularly bad at the present time since she has had pneumonia and was otherwise given information and counseling on smoking cessation. Her serum potassium all still low is improved today as she has been taking her oral potassium since it was changed to a liquid form. After some repeated explanations of her treatment and treatment goals she is now more willing to take her medications as prescribed as I have agreed that I will not give her any medications that have a high addiction potential or high abuse potential. To that end myself and the staff have discussed with her the appropriate use of Klonopin and she is agreed to taking this medication as prescribed. She remains mentally clear although she does demonstrate some impulsivity and poor judgment. She denies cough and chest pain and her fever has generally improved significantly since the addition of Invanz to her therapy. Her cultures show E. coli that is pansensitive and her urine and a gram positive cocci in clusters growing in 1 blood culture that has not yet been fully identified. Her chest x-ray from yesterday definitely showed a left lower lobe pneumonia, on my personal review, and this will be followed with a repeat chest x-ray on Wednesday with daily CBC, magnesium and BMP determinations to follow her hospital course for her numerous problems. I discussed her psychiatric problems with Magnus Chaparro the psychiatric counselor who has been following her. We have agreed to be very supportive of her staying away from most medications and taking only those things which are required for treatment of her disease states and not likely to be addictive or used abusively. We have also plan to have the patient follow-up with her [facility] intensive [place] rehabilitation program, where she spends 3 hours a day 5 days a week, upon her discharge. I have discussed possible discharge with the patient for as the earliest date depending on the results of her blood culture. 05/01/18: Tami is sitting up in a chair today and is quite conversant and in very pleasant in demeanor during our discussion. She asked again if she could go home and states that she really would like to have a cigarette. I have again advised her against smoking and we discussed the fact that she cannot drink alcohol in the future and I strongly encouraged her to avoid use of any type of illicit drug or abuse of prescription drugs. We have discussed the fact that her pneumonia is clinically improving dramatically and that her blood culture should be reported out later today. In fact the blood culture was just reported to me as being positive for Staphylococcus lugdunensis which is sensitive to cefazolin. Earlier her urinary culture showed an E. coli which was also sensitive to cefazolin. Therefore her antibiotics will be converted to cefazolin 2 g IV every 6 hours overnight and we will watch for any negative clinical change or return of fever and will also reassess her white blood count which had elevated significantly today. A chest x-ray will be obtained tomorrow and radiographic evidence of clearing is hoped for but more realistically no evidence of worsening of the pneumonia would be most likely positive reading. On physical exam today her breath sounds are substantially improved in the left base and only minimal coarse rhonchi were noted. Clinically she feels well and is experiencing no dyspnea, cough, chest pain or orthopnea. She shows no sign of anxiety or depression and has been very appropriate without any evidence of hallucination or aberrant behavior. Her vital signs have remained stable and she has been afebrile for the last 24 hours. Patient is very insistent that she wishes to be discharged tomorrow and since having made an agreement with her around that date I will probably discharge her to home with oral Keflex for antibiotic coverage as long as she does reasonably well tonight. Reason For Visit: METABOLIC ACIDIOSIS, ETOH WITHDRAW Physical Exam Vital Signs: Temp Pulse Resp BP Pulse Ox 98.9 F 98 16 105/65 98 05/01/18 07:33 05/01/18 16:04 05/01/18 16:04 05/01/18 07:33 05/01/18 16:04 Intake & Output 04/29/18 04/30/18 05/01/18 23:59 23:59 23:59 Intake Total 790 450 420 Output Total 1450 500 400 Balance -660 -50 20 Weight 59.4 kg 59.2 kg 59.2 kg General appearance: PRESENT: no acute distress, cooperative Head exam: PRESENT: atraumatic, normocephalic Eye exam: PRESENT: conjunctival injection, conjunctiva pink, EOMI. ABSENT: nystagmus, periorbital swelling, scleral icterus Ear exam: PRESENT: normal external ear exam. ABSENT: bleeding, drainage Mouth exam: PRESENT: moist, neck supple, tongue midline Neck exam: ABSENT: thyromegaly, tracheal deviation Respiratory exam: PRESENT: rales - Minimal rales noted in the left base, symmetrical, unlabored. ABSENT: prolonged expiratory phas, rhonchi, wheezes Cardiovascular exam: PRESENT: RRR. ABSENT: clicks, diastolic murmur, gallop, rubs, systolic murmur Vascular exam: PRESENT: normal capillary refill. ABSENT: pallor GI/Abdominal exam: PRESENT: normal bowel sounds, soft Rectal exam: PRESENT: deferred Extremities exam: ABSENT: joint swelling, pedal edema Musculoskeletal exam: PRESENT: full ROM, normal inspection - [id number] Neurological exam: PRESENT: alert, awake, oriented to person, oriented to place , oriented to time, oriented to situation, CN II-XII grossly intact. ABSENT: motor sensory deficit Psychiatric exam: PRESENT: appropriate affect, normal mood Skin exam: ABSENT: jaundice, rash, urticaria Results Laboratory Results: 05/01/18 11:30 05/01/18 11:30 05/01/18 05/01/18 11:30 11:30 WBC 17.1 H RBC 3.56 L Hgb 10.7 L Hct 32.2 L MCV 91 MCH 30.0 MCHC 33.1 RDW 24.3 H Plt Count 327 Sodium 137.8 Potassium 4.8 Chloride 105 Carbon Dioxide 22 Anion Gap 11 BUN 2 L Creatinine 0.47 L Est GFR ( Amer) > 60 Est GFR (Non-Af Amer) > 60 Glucose 121 H Calcium 9.2 04/28/18 11:27 Blood Blood Culture - Final Staphylococcus Lugdunensis Impressions: KUB X-Ray 04/25/18 10:20 IMPRESSION: Nasogastric tube in the stomach. Head CT 04/28/18 00:00 IMPRESSION: NORMAL BRAIN CT WITHOUT CONTRAST. EVIDENCE OF ACUTE STROKE: NO. Chest X-Ray 04/29/18 00:00 IMPRESSION: Left lower lobe pneumonia. No significant change. Assessment & Plan - Diagnosis (1) Hospital acquired PNA Is this a current diagnosis for this admission?: Yes Plan: Patient has developed a fever as well as physical exam findings consistent with a left lower lobe pneumonia. Chest x-ray does confirm the presence of the left lower lobe pneumonia (my interpretation) and she has been started on a regiment with Levaquin 750 mg daily to which she has shown a fairly good response with reduction in her fever and improvement in her mental status, her fever however has not completely resolved so her Levaquin was changed back to intravenous dosing, additionally ertapenem 1 g daily IV was initiated. Continue to monitor her temperature, vital signs and daily CBC as we treat her pneumonia. I will recheck her chest x-ray on 05/02/2018. 05/01/18: Levaquin and Invanz will be discontinued today as blood culture is positive for Staphylococcus lugdunensis which is sensitive to cefazolin and her urine culture was positive for E. coli which was pansensitive. Her antibiotics will be switched to Ancef 2 g IV every 6 hours until tomorrow morning at which time we will check her chest x-ray and will also check a CBC with her daily lab work. She could be discharged to home tomorrow with Keflex 1 g p.o. 4 times daily for another 7 days. (2) Alcohol withdrawal Qualifiers: Complication of substance-induced condition: with delirium Qualified Code(s ): F10.231 - Alcohol dependence with withdrawal delirium Is this a current diagnosis for this admission?: Yes Plan: 04/26/18: Continue IV fluid support at a higher flow rate to support her intravascular volume. CIWA withdrawal regiment utilizing Ativan. Add beta-blockade to help control the tachycardia. Monitor vital signs and intervene as needed. 04/27/18: We will discontinue IV fluids and initiate an oral diet and encourage oral fluids. Patient will ambulate initially with assistance and then as tolerated with ambulation encouraged. Will convert her beta-blockade to atenolol 100 mg daily, and her lorazepam to clonazepam 1 mg every 8 hours with as needed lorazepam IV and the CIWA protocol as ordered yesterday. Continue to monitor metabolic status with daily laboratory evaluation. Psychiatric consultation for evaluation to determine reasonable, safe and appropriate discharge options for this patient from a psychiatric viewpoint. 04/28/18: The patient will be continued on her current medication regimen and transferred to a medical floor with a sitter today. Discharge planning services will be consulted. Psychiatry will continue to follow this patient for purposes of ongoing assessment and evaluation. 04/29/18: Patient's medications will be changed to IV or oral fluids as she has not been able to swallow oral pills very well. I will ask psychiatry to come back and see the patient begin either today or sometime within the next few days if she is significantly improved and can probably be of more assistance in determining her ongoing needs however feel psychiatric input is still very much desired. Patient will be transferred to medical floor when beds are available with an appropriate sitter. 04/30/18: Ms. Pemberton be moved to the fifth floor today. She has agreed to use Klonopin on an as-needed basis for her anxiety and anxiety associated symptoms. She understands that she needs to eat and drink on her own as well as take oral medications or she will not be able to be discharged as she wishes. She will be strongly encouraged to rejoin her [facility] intensive outpatient alcohol rehabilitation program, where she has been seeing a rehab counselor and getting rehabilitation therapy for 3 hours a day 5 days a week. We will strongly encourage her to continue this therapy on a daily basis instead of sporadically as she had been attending in the past. She is been strongly admonished that she needs to discontinue all use of alcohol, substances of abuse and nicotine. Smoking cessation was discussed with the patient on the visit today. 05/01/18: Tami is doing very well with her current regiment using a atenolol 100 mg p.o. daily and as needed Klonopin however she has not required any further Klonopin administration. She will be continued on atenolol post hospital but I would be hesitant to give her Klonopin as I am reasonably certain she would not use it. (3) Metabolic acidosis Is this a current diagnosis for this admission?: Yes Plan: Metabolic acidosis is most likely induced by her alcohol consumption and the abrupt stoppage has brought her for treatment and therefore recognition of this phenomenon. The acidosis was corrected with IV fluid and replacement of electrolytes. Monitor daily lab work to evaluate for any recurrence or further related problems. (4) Hypokalemia Is this a current diagnosis for this admission?: Yes Plan: Potassium replacement per protocol for hypokalemia was initially followed. However due to difficulties in the obtaining of durable IV site and subsequent difficulties in having the patient take oral medications her potassium was difficult to bring into the normal range. When her oral potassium was switched to liquid form she was much more compliant with taking it and her potassium is significantly improved. Therefore oral potassium will be continued in the liquid form and we will follow daily lab work for ongoing evaluation of her kalemic state. 05/01/18: Her potassium has returned to normal values and will be rechecked one more time tomorrow prior to discharge. I would anticipate discharging her on a minimal dose of potassium if any presuming a reliable follow-up can be arranged. (5) Hypomagnesemia Is this a current diagnosis for this admission?: Yes Plan: Magnesium supplementation to replete diminished stores per protocol. Follow daily laboratory values to ascertain the status of her serum magnesium during her hospital course. - Time Time Spent with patient: 35 or more minutes Anticipated discharge: Home Within: within 24 hours
[2018-05-01] MEDS ORDERED: CEFAZOLIN 2 GM/D5W RTU 2 GM/50 ML RTUPB IV ONE (17:54)
[2018-05-01] MEDS: CEFAZOLIN 2 GM/D5W RTU 2 GM/50 ML RTUPB IV SCH (18:19)
[2018-05-02] MEDS: CEFAZOLIN 2 GM/D5W RTU 2 GM/50 ML RTUPB IV SCH ×2 (01:05→05:51)
[2018-05-02] MEDS: CLONAZEPAM 1 MG TABLET PO PRN (01:39)
[2018-05-02 08:27] VITALS: BP 109/72
[2018-05-02] MEDS: POTASSIUM CHLORIDE 20 MEQ/15 ML UDCUP PO SCH ×2 (08:57→10:31)
[2018-05-02] MEDS: IPRATROPIUM/ALBUTEROL 0.5-2.5 MG/3 ML AMPUL NEB SCH (09:24)
--- NOTE | 2018-05-02 10:01 | RADIOLOGY REPORT (SQ) ---
EXAM DESCRIPTION: CHEST 2 VIEWS COMPLETED DATE/TIME: 05/02/2018 9:11 am REASON FOR STUDY: follow-up hospital aquired PNA COMPARISON: Chest films 04/24/2018, 04/25/2018, 04/28/2018, 04/29/2018 EXAM PARAMETERS: NUMBER OF VIEWS: two views TECHNIQUE: Digital Frontal and Lateral radiographic views of the chest acquired. RADIATION DOSE: NA LIMITATIONS: none FINDINGS: LUNGS AND PLEURA: Small left pleural effusion, similar compared to films from 04/29/2018 an d 04/28/2018. There is persistent left retrocardiac consolidation with air bronchograms, worrisome for pneumonia. Minimal bandlike atelectasis right base. No pneumothorax MEDIASTINUM AND HILAR STRUCTURES: No masses or contour abnormalities. HEART AND VASCULAR STRUCTURES: Heart normal size. No evidence for failure. BONES: No acute findings. HARDWARE: Left subclavian triple lumen catheter tip in the superior vena cava OTHER: No other significant finding. IMPRESSION: Persistent small left pleural effusion Persistent bibasilar airspace disease left greater than right TECHNICAL DOCUMENTATION: JOB ID: [id number] [employer]- All Rights Reserved Reading location - IP/workstation name: [email or web address]
--- NOTE | 2018-05-02 10:18 | PDOC DISCHARGE SUMMARY ---
General - Admit/Disc Date/PCP Admission Date/Primary Care Provider: 04/25/18 01:04 Discharge Date: 05/02/18 - Discharge Diagnosis (1) Hospital acquired PNA Is this a current diagnosis for this admission?: Yes Summary: 04/29/18: Patient has developed a fever as well as physical exam findings consistent with a left lower lobe pneumonia. Chest x-ray does confirm the presence of the left lower lobe pneumonia (my interpretation) and she had been started on an emperic regiment with Levaquin 750 mg daily to which she has shown a fairly good response with reduction in her fever and improvement in her mental status, her fever however had not completely resolved so her Levaquin was changed back to intravenous dosing, additionally ertapenem 1 g daily IV was initiated. Continue to monitor her temperature, vital signs and daily CBC as we treat her pneumonia. I will recheck her chest x-ray on 05/02/2018. 05/01/18: Levaquin and Invanz will be discontinued today as blood culture is positive for Staphylococcus lugdunensis which is sensitive to cefazolin and her urine culture was positive for E. coli which was pansensitive. Her antibiotics will be switched to Ancef 2 g IV every 6 hours until tomorrow morning at which time we will check her chest x-ray and will also check a CBC with her daily lab work. She could be discharged to home tomorrow with Keflex 1 g p.o. 4 times daily for another 7 days. 05/02/18: Chest x-ray is improved and the patient clinically has continued to do very well with no recurrence of fever. Because of the resolution of her symptoms and good clinical response to treatment is felt that she can be discharged home in improved and stable condition today. She will follow-up with a primary care provider or with the [facility] within 1-2 weeks for reevaluation of her pneumonia at that time she should have a CBC basic metabolic profile and a chest x-ray performed with another chest x-ray performed in 4-6 weeks if her pneumonia has not radiographically resolved at the end of her antibiotic course. (2) Alcohol withdrawal Is this a current diagnosis for this admission?: Yes Summary: 04/26/18: Continue IV fluid support at a higher flow rate to support her intravascular volume. CIWA withdrawal regiment utilizing Ativan. Add beta-blockade to help control the tachycardia. Monitor vital signs and intervene as needed. 04/27/18: We will discontinue IV fluids and initiate an oral diet and encourage oral fluids. Patient will ambulate initially with assistance and then as tolerated with ambulation encouraged. Will convert her beta-blockade to atenolol 100 mg daily, and her lorazepam to clonazepam 1 mg every 8 hours with as needed lorazepam IV and the CIWA protocol as ordered yesterday. Continue to monitor metabolic status with daily laboratory evaluation. Psychiatric consultation for evaluation to determine reasonable, safe and appropriate discharge options for this patient from a psychiatric viewpoint. 04/28/18: The patient will be continued on her current medication regimen and transferred to a medical floor with a sitter today. Discharge planning services will be consulted. Psychiatry will continue to follow this patient for purposes of ongoing assessment and evaluation. 04/29/18: Patient's medications will be changed to IV or oral fluids as she has not been able to swallow oral pills very well. I will ask psychiatry to come back and see the patient begin either today or sometime within the next few days if she is significantly improved and can probably be of more assistance in determining her ongoing needs however feel psychiatric input is still very much desired. Patient will be transferred to medical floor when beds are available with an appropriate sitter. 04/30/18: Ms. Pemberton be moved to the fifth floor today. She has agreed to use Klonopin on an as-needed basis for her anxiety and anxiety associated symptoms. She understands that she needs to eat and drink on her own as well as take oral medications or she will not be able to be discharged as she wishes. She will be strongly encouraged to rejoin her [facility] intensive outpatient alcohol rehabilitation program, where she has been seeing a rehab counselor and getting rehabilitation therapy for 3 hours a day 5 days a week. We will strongly encourage her to continue this therapy on a daily basis instead of sporadically as she had been attending in the past. She is been strongly admonished that she needs to discontinue all use of alcohol, substances of abuse and nicotine. Smoking cessation was discussed with the patient on the visit today. 05/01/18: Tami is doing very well with her current regiment using a atenolol 100 mg p.o. daily and as needed Klonopin however she has not required any further Klonopin administration. She will be continued on atenolol post hospital. 05/02/18: Tami is doing very well and continues to show a normal mood and affect with good impulse control. She will be discharged today and I have discussed with her her medications including she will need to take atenolol 100 mg p.o. daily on an ongoing basis and I have agreed to prescribe for her Klonopin 1 mg p.o. 3 times daily as needed anxiety or panic symptoms which she agrees that she will use only as needed. She will be following up with her outpatient rehabilitation group and I have encouraged her to attend as many alcoholics anonymous meetings as she can possibly attend. (3) Metabolic acidosis Is this a current diagnosis for this admission?: Yes Summary: Metabolic acidosis is most likely induced by her alcohol consumption and the abrupt stoppage has brought her for treatment and therefore recognition of this phenomenon. The acidosis was corrected with IV fluid and replacement of electrolytes. Monitored daily lab work to evaluate for any recurrence or further related problems for the remainder of the hospital course. (4) Hypokalemia Is this a current diagnosis for this admission?: Yes Summary: Potassium replacement per protocol for hypokalemia was initially followed. However due to difficulties in the obtaining of durable IV site and subsequent difficulties in having the patient take oral medications her potassium was difficult to bring into the normal range. When her oral potassium was switched to liquid form she was much more compliant with taking it and her potassium is significantly improved. Therefore oral potassium will be continued in the liquid form and we will follow daily lab work for ongoing evaluation of her kalemic state. 05/01/18: Her potassium has returned to normal values and will be rechecked one more time tomorrow prior to discharge. I would anticipate discharging her on a minimal dose of potassium if any presuming a reliable follow-up can be arranged. 05/02/18: After discussing the situation with the patient it has been decided that we will not send her home with any potassium and I have encouraged her to follow- up with a primary care provider within 1-2 weeks at which time she should be reevaluated and a metabolic profile should be obtained to evaluate her potassium as well as a CBC to evaluate her pneumonia and probably a chest x-ray should be performed again in 1-6 weeks. (5) Hypomagnesemia Is this a current diagnosis for this admission?: Yes Summary: Magnesium supplementation to replete diminished stores per protocol. Followed daily laboratory values to ascertain the status of her serum magnesium during her hospital course. - Additional Information Resuscitation Status: Full Code Discharge Diet: As Tolerated, Regular Discharge Activity: Activity As Tolerated, Walk Frequently Prescriptions: Atenolol 100 mg PO DAILY 30 Days #30 tablet Cephalexin [Keflex] 1,000 mg PO BIDBS 10 Days #40 capsule Clonazepam [Klonopin 1 mg Tablet] 1 mg PO TIDP PRN 7 Days #12 tablet MDD 3 mg PRN Reason: Anxiety Home Medications: Ferrous Sulfate 324 mg PO DAILY 04/26/18 Atenolol 100 mg PO DAILY 30 Days #30 tablet 05/02/18 Cephalexin [Keflex] 1,000 mg PO BIDBS 10 Days #40 capsule 05/02/18 Clonazepam [Klonopin 1 mg Tablet] 1 mg PO TIDP PRN 7 Days #12 tablet MDD 3 mg History of Present Illness History of Present Illness: TAMI PEMBERTON is a 37 year old female who presented to the emergency room during the evening of 04/24/2018 complaining of dyspnea, nausea and severe anxiety with a panic attack. She has a history of excessive and heavy alcohol use on a regular basis and had not had any alcohol for 12 to 24 hours prior to onset of her symptoms. She describes the dyspnea as severe and that she was having a great deal of difficulty initiating the inhalation portion of her respiratory cycle. Her nausea was moderate in intensity and was not accompanied by vomiting, chest pain or cough. Her anxiety was severe with a panic attack and was not responsive to hydroxyzine when taken. In the emergency room she was found to be significantly acidotic and tachycardic with a high level of anxiety which did not respond to treatment with diazepam. She was subsequently admitted to the intensive care unit and treated with IV Ativan and IV fluids. At the time of this evaluation Tami is somnolent though arousable but is unable to provide any further information to supplement her medical history. Hospital Course Hospital Course: 04/27/18: Tami is awake today and states she feels like having something to eat and drink she is no longer feeling anxious, dyspneic, nauseous or panic stricken. Her tachycardia has been well controlled with beta-robert and her blood pressure is also reasonably well controlled utilizing same medication. She will be continued on a longer acting form of beta-robert and she will be started on a q. 8-hour dose of clonazepam. Her activity level will be increased today and she will be started on a cardiac diet. A psychiatry consultation will be obtained to evaluate her for appropriate and safe disposition given her multiple psychiatric problems and a history of a recent increase in alcohol use. Her metabolic acidosis has resolved per her laboratory evaluation this morning. She may be ready for discharge as early as 04/28/2018. 04/28/18: Tami is up today and sitting in her chair, she asked if she is going to be able to go home today. She remains somewhat confused although she is well oriented to person and place and is only fairly oriented to time and situation. She denies having any tremors and no significant tremors or seizures have been noted by staff. She has been noted to make confused utterances and possibly is having some type of hallucination. She is medically stable at this point and will be moved to the regular medical floor where she will require a sitter. We will continue her alcohol withdrawal regiment and follow her progress. Discharge planning will be consulted for assistance in the most appropriate disposition for this patient. 04/29/18: Tami is again awake and resting in bed and asked if she may be going home today. I explained her that she has a pneumonia in her left chest and she is going to need to be on some antibiotics for a while and that she is not been able to tolerate enough activity to go home and be on her own. She is significantly more conversant than she has been on prior evaluations and there is little or no confusion in her attitude today. Her exam shows course rales present in the left base anteriorly and posteriorly. The remainder of her exam is essentially unchanged from previous evaluations. Nursing staff explains that she is not taking oral solids very well but is able to tolerate oral liquids. Patient's medications will be converted to either liquid form or IV form she is unable to swallow pills or capsules at this time. 04/30/18: Tami is resting in bed this morning when I examined her. She states that she thinks she is feeling better and would really like to go home soon. She also admits that she would really like to get outside because she would like to have a cigarette. She was counseled that cigarette smoking would be particularly bad at the present time since she has had pneumonia and was otherwise given information and counseling on smoking cessation. Her serum potassium all still low is improved today as she has been taking her oral potassium since it was changed to a liquid form. After some repeated explanations of her treatment and treatment goals she is now more willing to take her medications as prescribed as I have agreed that I will not give her any medications that have a high addiction potential or high abuse potential. To that end myself and the staff have discussed with her the appropriate use of Klonopin and she is agreed to taking this medication as prescribed. She remains mentally clear although she does demonstrate some impulsivity and poor judgment. She denies cough and chest pain and her fever has generally improved significantly since the addition of Invanz to her therapy. Her cultures show E. coli that is pansensitive and her urine and a gram positive cocci in clusters growing in 1 blood culture that has not yet been fully identified. Her chest x-ray from yesterday definitely showed a left lower lobe pneumonia, on my personal review, and this will be followed with a repeat chest x-ray on Wednesday with daily CBC, magnesium and BMP determinations to follow her hospital course for her numerous problems. I discussed her psychiatric problems with Magnus Chaparro the psychiatric counselor who has been following her. We have agreed to be very supportive of her staying away from most medications and taking only those things which are required for treatment of her disease states and not likely to be addictive or used abusively. We have also plan to have the patient follow-up with her [facility] intensive outpatient alcohol rehabilitation program, where she spends 3 hours a day 5 days a week, upon her discharge. I have discussed possible discharge with the patient for as the earliest date depending on the results of her blood culture. 05/01/18: Tami is sitting up in a chair today and is quite conversant and in very pleasant in demeanor during our discussion. She asked again if she could go home and states that she really would like to have a cigarette. I have again advised her against smoking and we discussed the fact that she cannot drink alcohol in the future and I strongly encouraged her to avoid use of any type of illicit drug or abuse of prescription drugs. We have discussed the fact that her pneumonia is clinically improving dramatically and that her blood culture should be reported out later today. In fact the blood culture was just reported to me as being positive for Staphylococcus lugdunensis which is sensitive to cefazolin. Earlier her urinary culture showed an E. coli which was also sensitive to cefazolin. Therefore her antibiotics will be converted to cefazolin 2 g IV every 6 hours overnight and we will watch for any negative clinical change or return of fever and will also reassess her white blood count which had elevated significantly today. A chest x-ray will be obtained tomorrow and radiographic evidence of clearing is hoped for but more realistically no evidence of worsening of the pneumonia would be most likely positive reading. On physical exam today her breath sounds are substantially improved in the left base and only minimal coarse rhonchi were noted. Clinically she feels well and is experiencing no dyspnea, cough, chest pain or orthopnea. She shows no sign of anxiety or depression and has been very appropriate without any evidence of hallucination or aberrant behavior. Her vital signs have remained stable and she has been afebrile for the last 24 hours. Patient is very insistent that she wishes to be discharged tomorrow and since having made an agreement with her around that date I will probably discharge her to home with oral Keflex for antibiotic coverage as long as she does reasonably well tonight. 05/02/18: Tami is waiting for me in her room today so that she can be discharged. She is just returned from chest x-ray at the time of my arrival to her room. Her chest x-ray is reviewed by me and it appears that she has some improvement in the left lower lobe pneumonia with definite decrease in density of the infiltrate and a minimal reduction in the size of the infiltrate. Clinically she continues to do very well and that she will be discharged home in improved and stable condition as previously discussed. Physical Exam Vital Signs: Temp Pulse Resp BP Pulse Ox 98.4 F 98 16 109/72 100 05/02/18 08:00 05/02/18 09:24 05/02/18 09:24 05/02/18 08:00 05/02/18 09:24 Intake & Output 04/30/18 05/01/18 05/02/18 23:59 23:59 23:59 Intake Total 450 860 750 Output Total 500 2500 Balance -50 -1640 750 Weight 59.2 kg 59.2 kg 59.3 kg General appearance: PRESENT: no acute distress, cooperative Head exam: PRESENT: atraumatic, normocephalic Eye exam: PRESENT: conjunctiva pink, EOMI. ABSENT: conjunctival injection, nystagmus, periorbital swelling, scleral icterus Respiratory exam: PRESENT: clear to auscultation kranthi, decreased breath sounds - Very minimally decreased breath sounds in the left lower lobe region posteriorly., symmetrical, unlabored. ABSENT: rales - No rales were noted on today's exam Cardiovascular exam: PRESENT: RRR. ABSENT: clicks, diastolic murmur, gallop, rubs, systolic murmur Vascular exam: PRESENT: normal capillary refill. ABSENT: pallor Neurological exam: PRESENT: alert, awake, oriented to person, oriented to place , oriented to time, oriented to situation, CN II-XII grossly intact. ABSENT: motor sensory deficit Psychiatric exam: PRESENT: appropriate affect, normal mood Skin exam: ABSENT: jaundice, rash, urticaria Results Laboratory Results: 05/01/18 11:30 05/01/18 11:30 05/01/18 05/01/18 11:30 11:30 WBC 17.1 H RBC 3.56 L Hgb 10.7 L Hct 32.2 L MCV 91 MCH 30.0 MCHC 33.1 RDW 24.3 H Plt Count 327 Sodium 137.8 Potassium 4.8 Chloride 105 Carbon Dioxide 22 Anion Gap 11 BUN 2 L Creatinine 0.47 L Est GFR ( Amer) > 60 Est GFR (Non-Af Amer) > 60 Glucose 121 H Calcium 9.2 04/28/18 11:27 Blood Blood Culture - Final Staphylococcus Lugdunensis Impressions: KUB X-Ray 04/25/18 10:20 IMPRESSION: Nasogastric tube in the stomach. Head CT 04/28/18 00:00 IMPRESSION: NORMAL BRAIN CT WITHOUT CONTRAST. EVIDENCE OF ACUTE STROKE: NO. Qualifiers - * PATIENT BEING DISCHARGED WITH ANY OF THE FOLLOWING DIAGNOSIS: No Plan Discharge Plan: Discharged home in improved and stable condition Time Spent: Greater than 30 Minutes
[2018-05-02] MEDS: ENOXAPARIN SODIUM INJ 40 MG/0.4 ML DISP.SYRIN SUBCUT SCH (10:26)
[2018-05-02] MEDS: RANITIDINE HCL SYRUP 150 MG/10 ML UDCUP PO SCH (10:33)
[2018-05-02] MEDS: ATENOLOL 50 MG TABLET PO SCH (10:33)
== END 2018-05-02 11:35 | disposition home or self-care (01) | DRG 896 ==
LOC: ER 17:42 → EH 04-25 01:04 → 3W 04-25 03:05 → ICU 04-25 10:48 → 5 04-30 14:08
PROVIDERS: ADMIT Internal Medicine; ATTEND Internal Medicine
PROC: 02HV33Z Insertion of Infusion Device into Superior Vena Cava, Percutaneous Approach (ICD-10-PCS; principal; 2018-04-25)
PROC: 0D9670Z Drainage of Stomach with Drainage Device, Via Natural or Artificial Opening (ICD-10-PCS; 2018-04-25)
PROC: 30233N1 Transfusion of Nonautologous Red Blood Cells into Peripheral Vein, Percutaneous Approach (ICD-10-PCS; 2018-04-29)
DX: F10.231 Alcohol dependence with withdrawal delirium (principal); J18.9 Pneumonia, unspecified organism; E87.2 Acidosis; E87.3 Alkalosis; E88.89 Other specified metabolic disorders; I87.2 Venous insufficiency (chronic) (peripheral); D64.9 Anemia, unspecified; F43.10 Post-traumatic stress disorder, unspecified; R06.4 Hyperventilation; F41.0 Panic disorder [episodic paroxysmal anxiety]; E87.6 Hypokalemia; E83.42 Hypomagnesemia; F17.210 Nicotine dependence, cigarettes, uncomplicated; Z88.0 Allergy status to penicillin; Z91.013 Allergy to seafood; Z82.61 Family history of arthritis; Z82.49 Family history of ischemic heart disease and other diseases of the circulatory system; Z80.9 Family history of malignant neoplasm, unspecified
CPT/HCPCS: 36415; 36430; 36600; 70450; 71045; 71046; 74018; 80048; 80053; 80307; 81001; 81025; 82803; 82962; 83036; 83605; 83690; 83735; 83930; 84100; 84132; 84439; 84443; 84481; 84600; 85025; 85027; 85610; 86850; 86900; 86901; 86920; 87040; 87077; 87086; 87088; 87186; 93005; 93010; 96361; 96374; 96375; 96376; 99291; 99292; C1751; J0690; J1335; J1630; J1644; J1650; J1800; J1815; J1956; J2060; J2704; J2765; J3360; J3411; J3475; J3480; J3490; J7030; J7050; J7620; P9016; S0119; S0164

== ENCOUNTER 2019-04-16 16:08 | Emergency (ER) | payer OTHER ==
[2019-04-16 16:58] LABS: ABSOLUTE LYMPHOCYTES (AUTO) 1.2 10^3/uL (0.5-4.7); ABSOLUTE MONOCYTES (AUTO) 0.3 10^3/uL (0.1-1.4); ABSOLUTE NEUT (AUTO) 1.3 10^3/uL (1.7-8.2); BASOPHILS % (AUTO) 1.2 % (0-2); EOSINOPHILS % (AUTO) 0.2 % (0-6); HEMATOCRIT 34.3 % (36.0-47.0); HEMOGLOBIN 11.8 g/dL (12.0-15.5); LYMPHOCYTES % (AUTO) 41.6 % (13-45); MEAN CORPUSCULAR HGB CONC 34.4 g/dL (32.0-36.0); MEAN CORPUSCULAR VOLUME 93 fl (80-97); MONOCYTES % (AUTO) 10.1 % (3-13); PLATELET COUNT 205 10^3/uL (150-450); RED BLOOD COUNT 3.69 10^6/uL (3.72-5.28); SEGMENTED NEUTROPHILS % (AUTO) 46.9 % (42-78); TOTAL CELLS COUNTED % (AUTO) 100 %; WHITE BLOOD COUNT 2.9 10^3/uL (4.0-10.5)
[2019-04-16 17:03] LABS: ALBUMIN 4.9 g/dL (3.5-5.0); ALKALINE PHOSPHATASE 76 U/L (38-126); ASPARTATE AMINO TRANSFERASE 49 U/L (14-36); BILIRUBIN,DIRECT 0.3 mg/dL (0.0-0.4); BILIRUBIN,TOTAL 0.6 mg/dL (0.2-1.3); BLOOD UREA NITROGEN 4 mg/dL (7-20); CALCIUM 8.8 mg/dL (8.4-10.2); CARBON DIOXIDE 19 mmol/L (22-30); CHLORIDE 98 mmol/L (98-107); GLUCOSE 116 mg/dL (75-110); POTASSIUM 4.2 mmol/L (3.6-5.0); TOTAL PROTEIN 8.6 g/dL (6.3-8.2)
[2019-04-16 17:14] LABS: ANION GAP 21 (5-19)
[2019-04-16 17:15] LABS: CREATINE KINASE MB 0.23 ng/mL (<4.55)
[2019-04-16 17:32] LABS: TROPONIN I < 0.012 ng/mL
[2019-04-16] MEDS ORDERED: LORAZEPAM INJ 2 MG/1 ML VIAL IV ONE (17:53)
--- NOTE | 2019-04-16 18:05 | ER Document Report ---
ED Substance Abuse / Acc. OD - General Chief Complaint: Alcohol Withdrawl Stated Complaint: VOMITING Time Seen by Provider: 04/16/19 17:19 Primary Care Provider: DANYELLE,KATE [Primary Care Provider] - Follow up as needed Notes: Patient is experiencing panic or anxiety attack symptoms. She is been diagnosed with this disorder since 2009. She relates it to being on duty in [place] and some of the things that she saw there. She says that she is been heavily drinking alcohol in the past as well as currently. She went into alcohol withdrawal here in the past and required ICU admission. She does not remember much about her 8-day stay in this hospital then. She says she is vomited about 5 times. Has not been able to eat anything since . Symptoms seem to be worse this morning. Patient says that she has not had any alcohol since last night. Her only current medication is hydroxyzine which she takes for anxiety. She is been prescribed Wellbutrin but not taking it. Smokes and drinks heavily of alcohol. TRAVEL OUTSIDE OF THE [place] IN LAST 30 DAYS: No - Related Data Allergies/Adverse Reactions: Penicillins Allergy (Verified 04/24/18 17:43) Shellfish * [Shellfish] Allergy (Verified 04/24/18 17:43) Past Medical History - Social History Smoking Status: Current Every Day Smoker Frequency of alcohol use: Heavy Family History: Arthritis, CAD, DM, Malignancy Patient has suicidal ideation: No Patient has homicidal ideation: No - Past Medical History Cardiac Medical History: Reports: Hx Hypercholesterolemia - DX IN 2011, Hx Hypertension - no meds Pulmonary Medical History: Reports: Hx Bronchitis - IN 2007 Psychiatric Medical History: Reports: Hx Anxiety - DX IN 2010, Hx Depression - DX IN 2010, Hx Post Traumatic Stress Disorder - DX IN 2009 Past Surgical History: Reports: Hx Tonsillectomy - REMOVE 2006 - Immunizations Immunizations up to date: Yes Hx Diphtheria, Pertussis, Tetanus Vaccination: Yes Review of Systems - Review of Systems Notes: CONSTITUTIONAL : Denies fever. CARDIOVASCULAR: Denies chest pain. [place] her heart was not beating right. RESPIRATORY: Denies cough, chest congestion, or shortness of breath. GASTROINTESTINAL: Denies abdominal pain but has been nauseated and vomiting. See HPI. GENITOURINARY: Denies difficulty or painful urinating, urinary frequency, blood in urine. Physical Exam - Vital signs Vitals: Temp Pulse Resp BP Pulse Ox 98.2 F 84 16 124/77 98 04/16/19 16:35 04/16/19 16:35 04/16/19 16:35 04/16/19 16:35 04/16/19 16:35 Interpretation: Normal Notes: PHYSICAL EXAMINATION: GENERAL: Well-appearing, no acute distress. HEAD: Atraumatic, normocephalic. NECK: Normal range of motion, supple. LUNGS: Breath sounds clear and equal bilaterally. HEART: Regular rate and rhythm without murmurs heard. ABDOMEN: Soft, nontender. No guarding or rebound or masses felt. Neuropsychiatric: Anxious. Awake alert and oriented x3. No neurologic deficits. Course - Vital Signs Vital signs: Temp Pulse Resp BP Pulse Ox 98.2 F 84 16 124/77 98 04/16/19 16:35 04/16/19 16:35 04/16/19 16:35 04/16/19 16:35 04/16/19 16:35 - Laboratory Result Diagrams: 04/16/19 15:45 04/16/19 15:45 Laboratory results interpreted by me: 04/16/19 04/16/19 15:45 15:45 WBC 2.9 L RBC 3.69 L Hgb 11.8 L Hct 34.3 L RDW 24.0 H Absolute Neuts (auto) 1.3 L Carbon Dioxide 19 L Anion Gap 21 H BUN 4 L Glucose 116 H AST 49 H Total Protein 8.6 H 04/16/19 18:08 WBC of 2900 noted and patient made aware. [facility] Discharge - Discharge Clinical Impression: Anxiety, Panic attacks, Substance abuse, Alcohol abuse Condition: Stable Disposition: HOME, SELF-CARE Additional Instructions: CHRONIC ALCOHOLISM and ALCOHOL ABUSE: Your evaluation reveals evidence of chronic alcoholism, an addiction to alcohol. The tendency to alcoholism may be inherited. Chronic use of alcohol weakens muscles, causes fatty deposits in the liver, damages the stomach, makes you more prone to infections, and can cause defects in unborn children. In the long run, brain atrophy and cirrhosis of the liver result. You are also at greater risk for certain types of cancer, such as cancer of the mouth, throat, stomach, and liver. Counselling services are available to help you. In-hospital treatment programs often help. Support groups such as Alcoholics Anonymous can be very useful in beating this addiction. Your physician can make a referral for you. As alcoholics often are prone to other addictions, you should discuss your use of any other medications with the doctor. ALCOHOL WITHDRAWAL: Your symptoms may be caused by or lead to alcohol withdrawal. After a period of frequent drinking, the brain and body are changed by the alcohol. When you quit or reduce your drinking, the nervous system becomes unstable. Withdrawal symptoms can start a few hours after your last drink, but sometimes don't begin until a couple of days later. Symptoms can include shakiness, sweating, insomnia, nausea, vomiting, fearfulness, hallucinations, and seizures. In addition to the acute effects of alcohol withdrawal, we often have to deal with the medical effects of alcoholism. These problems often include deh ydration, stomach irritation, intestinal bleeding, low blood sugar, liver disease, and pancreas inflammation. Treatment for alcohol withdrawal includes mild sedatives, vitamins, and fluids. You need to be with someone who can help if symptoms become severe. Many patients can withdraw at home. Admission to the hospital or a detox facility may be necessary if withdrawal symptoms are severe and uncontrollable. Abstaining from alcohol is the only effective long-term treatment. If you start drinking again, you will not be able to control yourself after the first drink. Treatment programs are available. In addition, many alcoholics benefit from Alcoholics Anonymous or other support groups available through your counselor or samaritan vending manager. [facility] and [facility] are support groups for f riends and family members of an alcoholic. Go to the emergency room if you develop persistent vomiting, severe abdominal pain, fever, shortness of breath, hallucinations, uncontrollable tremors, or seizures. Antinausea Medication You have been given a medication to suppress nausea and vomiting. This type of medication can be given as a shot, pill, or suppository. It will usually last for many hours. Pills and shots usually last six to eight hours, suppositories last about 12 hours. For the typical illness, only one or two doses of the medication may be necessary. Mild lightheadedness may occur. This type of medicine can cause drowsiness. Do not drive or operate dangerous machinery while under its influence. Do not mix with alcohol. See your doctor at once if you have muscle spasms or tightness, or uncontrollable motions (particularly of the neck, mouth, or jaw). Persistent vomiting or severe lightheadedness should also be evaluated by the physician. Benzodiazepines You have been given a benzodiazepine medication. Examples of this type of medicine include Valium, Xanax, Librium, Ativan, and Halcion. Benzodiazepines have many uses. Medications of this type are used for insomnia, anxiety, muscle spasms, seizures, and drug and alcohol withdrawal. You may become very drowsy when you first take the medication. You should not drive or operate machinery while under its effects. Do not combine the medication with alcohol, or with any other medication without talking to your doctor. Do not take if without specific instruction from your recorder gravity prospecting. Some benzodiazepines may have harmful interactions with oral antifungal medicines such as ketoconazole, itraconazole, and nefazodone. If you are taking an antifungal medicine, discuss this with your doctor before taking benzodiazepines. INSTRUCTIONS FOR HOME CARE FOLLOWING DRUG OVERDOSAGE: The doctor feels it's safe for you to go home. You will need to be observed. If charcoal and a laxative was given to you, expect some loose black stools soon. Take no medications unless approved by a physician, including alcohol. If drowsy, lie on your stomach or side for sleeping to avoid aspiration if vomiting occurs. Take only liquids by mouth until there is no more nausea. FOR THE OBSERVER: Observe the patient for the next 24 hours and call or go to the hospital if any of the following are noted: prolonged or repeated vomiting, difficulty in arousing, convulsions (seizures or fits), fever, persistent cough, breathing that is too slow or too rapid, or confused or bizarre behavior. If a counselling visit has been arranged, make sure the patient attends. Call the physician or poison control if you have questions. FOLLOW-UP CARE: If you have been referred to a physician for follow-up care, call the physicians office for an appointment as you were instructed or within the next two days. If you experience worsening or a significant change in your symptoms, notify the physician immediately or return to the Emergency Department at any time for re-evaluation. If you develop new or worsening symptoms, have a seizure, lose consciousness, or any other concerns, return for us to reevaluate your condition immediately. Take the prescribed medications for your nausea and vomiting and for your withdrawal symptoms. You can continue to take your hydroxyzine as prescribed, as well. Prescriptions: Lorazepam [Ativan 1 mg Tablet] 1 mg PO Q4HP PRN #25 tab PRN Reason: Ondansetron [Zofran Odt 4 mg Tablet] 1 - 2 tab PO Q4H PRN #20 tab.rapdis PRN Reason: For Nausea/Vomiting [facility] - Follow up as needed
[2019-04-16 18:49] VITALS: BP 125/85
--- NOTE | 2019-04-16 22:23 | EKG REPORT ---
SEVERITY:- BORDERLINE ECG - SINUS RHYTHM BIPHASIC T WAVES V2, NEW FROM 01/18/16 EKG, CLINICAL CORRELATION NEEDED. : Confirmed by: Esa Proctor MD 16-Apr-2019 22:22:45
== END 2019-04-16 18:57 | disposition home or self-care (01) ==
LOC: ER 16:08
DX: F41.9 Anxiety disorder, unspecified (principal); Z79.899 Other long term (current) drug therapy; F41.0 Panic disorder [episodic paroxysmal anxiety]; R11.2 Nausea with vomiting, unspecified; F10.10 Alcohol abuse, uncomplicated; F17.200 Nicotine dependence, unspecified, uncomplicated; Z88.0 Allergy status to penicillin; Z91.013 Allergy to seafood
CPT/HCPCS: 93005; 99285; 96374; 36415; 82553; 80307; 82550; 85025; 80053; 84484; 93010; J2060

== ENCOUNTER 2020-08-13 12:06 | Emergency (ER) | payer OTHER, MEDICAID | END 2020-08-13 12:49 | disposition left against medical advice (07) | LOC: ER 12:06 | DX: Z53.21 Procedure and treatment not carried out due to patient leaving prior to being seen by health care provider (principal) ==